=== PATIENT | female | born 1985 | race Caucasian/White ===

== ENCOUNTER 2016-08-06 11:17 | Emergency (ER) | payer OTHER ==
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
[2016-08-06] MEDS ORDERED: metroNIDAZOLE 500 MG TAB PO STA (12:55)
[2016-08-06] MEDS ORDERED: AZITHROMYCIN 500 MG TAB PO STA (12:55)
[2016-08-06] MEDS ORDERED: cefTRIAXone 250 MG VIAL IM STA (12:55)
[2016-08-06 13:00] LABS: Appearance,Urine Cloudy (Clear); Bacteria,Urine Rare /hpf; Bilirubin,Urine Negative (Negative); Glucose,Urine (UA) Negative (Negative); Ketones,Urine Negative (Negative); Leukocyte Esterase,Urine Negative (Negative); Mucus,Urine Rare /hpf; Nitrite,Urine Positive (Negative); PH, Urine 5.5 (5.0-8.0); Particle Count 35225; Protein,Urine Negative (Negative); Squamous Epithelial Cell,Urine 3 /hpf (0-4); UA Billing (MACRO vs. MICRO) MICRO; Urobilinogen,Urine <2.0 mg/dL (<2.0); WBC,Urine 4 /hpf (0-5)
--- NOTE | 2016-08-06 13:18 | US ---
EXAMINATION TYPE: US transvaginal DATE OF EXAM: 08/06/2016 12:50 PM COMPARISON: NONE CLINICAL HISTORY: Pain. x 3, tubal ligation TECHNIQUE: Transvaginal (TV) Date of LMP: 08/01/2016, EXAM MEASUREMENTS: Uterus: 8.4 x 5.8 x 4.5 cm Endometrial Stripe: 0.6 cm Right Ovary: 2.4 x 1.5 x 1.5 cm Left Ovary: 2.8 x 1.8 x 1.9 cm TECHNOLOGIST IMPRESSION: 1. Uterus: wnl, anteverted 2. Endometrium: wnl 3. Right Ovary: follicles 4. Left Ovary: follicles Spectral, color and waveform doppler imaging shows good arterial and venous flow within the ovaries ; there is no evidence for ovarian torsion. 5. Bilateral Adnexa: wnl 6. Posterior cul-de-sac: free fluid IMPRESSION: Ovarian torsion is not evident. Small amount of free fluid.
--- NOTE | 2016-08-06 13:21 | ED ---
Medical Decision Making - Medical Decision Making We did discuss the patient APPEARS to have a tinea pedis. We did discuss will give her cream she is up with her doctor for any additional cramping we discussed possible side effects. Patient states that she understood. - Lab Data Lab Results 08/06/16 08/06/16 08/06/16 Range/Units 12:15 12:15 12:15 Urine Color Yellow Urine Appearance Cloudy H (Clear) Urine pH 5.5 (5.0-8.0) Ur Specific [place] 1.020 (1.001-1.035) Urine Protein Negative (Negative) Urine Glucose (UA) Negative (Negative) Urine Ketones Negative (Negative) Urine Blood Negative (Negative) Urine Nitrate Positive H (Negative) Urine Bilirubin Negative (Negative) Urine Urobilinogen <2.0 (<2.0) mg/dL Ur Leukocyte Esterase Negative (Negative) Urine WBC 4 (0-5) /hpf Ur Squamous Epith Cells 3 (0-4) /hpf Urine Bacteria Rare H (None) /hpf Urine Mucus Rare H (None) /hpf Urine HCG, Qual Not Detected (Not Detectd) Trichomonas Ag (Rapid) Negative (Negative) Disposition Clinical Impression: Pelvic inflammatory disease (PID), Tinea pedis Disposition: HOME SELF-CARE Condition: Stable Instructions: Pelvic Inflammatory Disease (ED) Additional Instructions: Please use medication as discussed. Please follow up with family doctor if symptoms have not improved over the next two days. Please return to the emergency room if your symptoms increase or worsen or for any other concerns. Prescriptions: Doxycycline [Vibramycin] 100 mg PO Q12HR #56 capsule Ketoconazole 2% Cream [Nizoral 2%] 1 applic TOPICAL BID #1 tube Referrals: Kevin Keita MD [Primary Care Provider] - 1-2 days Time of Disposition: 13:21
[2016-08-06 13:34] VITALS: BP 146/88; PULSE 58; RESP 16; TEMP 97.8
[2016-08-08 09:27] LABS: Chlamydia/GC Source Vaginal
== END 2016-08-06 13:37 | disposition home or self-care (01) ==
LOC: EC 11:17
DX: N73.9 Female pelvic inflammatory disease, unspecified (principal); B35.3 Tinea pedis; G40.909 Epilepsy, unspecified, not intractable, without status epilepticus; F41.9 Anxiety disorder, unspecified; F31.9 Bipolar disorder, unspecified; Z79.899 Other long term (current) drug therapy; Z88.0 Allergy status to penicillin; Z88.8 Allergy status to other drugs, medicaments and biological substances; Z88.5 Allergy status to narcotic agent; A63.0 Anogenital (venereal) warts; Z22.4 Carrier of infections with a predominantly sexual mode of transmission; F17.200 Nicotine dependence, unspecified, uncomplicated
CPT/HCPCS: 87591; 87491; 81001; 81025; 87808; 87070; 87086; 93975; 76830; 96372; 99284; J0696; 87077; 87186; 87205

== ENCOUNTER 2016-12-28 16:23 | Emergency (ER) | payer OTHER ==
[2016-12-28] MEDS ORDERED: ORPHENADRINE 30 MG/ML 2 ML VIAL IM STA (17:44)
[2016-12-28] MEDS ORDERED: KETOROLAC 60 MG/2 ML VIAL IM STA (17:44)
[2016-12-28 18:22] LABS: Appearance,Urine Cloudy (Clear); Bacteria,Urine Occasional /hpf; Bilirubin,Urine Negative (Negative); Glucose,Urine (UA) Negative (Negative); Ketones,Urine 1+ (Negative); Leukocyte Esterase,Urine Small (Negative); Mucus,Urine Occasional /hpf; Nitrite,Urine Positive (Negative); PH, Urine 6.5 (5.0-8.0); Particle Count 185863; Protein,Urine Trace (Negative); RBC,Urine 1 /hpf (0-5); Specific Gravity,Urine 1.018 (1.001-1.035); Squamous Epithelial Cell,Urine 5 /hpf (0-4); UA Billing (MACRO vs. MICRO) MICRO; Urobilinogen,Urine <2.0 mg/dL (<2.0); WBC,Urine 18 /hpf (0-5)
--- NOTE | 2016-12-28 18:32 | ED ---
Back Pain HPI - General Chief Complaint: Back Pain/Injury Stated Complaint: Back Pain & STD testing Time Seen by Provider: 12/28/16 17:31 Source: patient, RN notes reviewed, old records reviewed Limitations: no limitations - History of Present Illness Initial Comments: Physical 31-year-old female presenting to the [facility] complaint of chronic back pain. Patient reports she takes tramadol from her primary care provider. Patient reports that she does not like taking the tramadol as she feels it makes her have minor seizures. Patient states that she was told by an emergency room physician to stop taking Ultram. Patient states that despite this her primary care provider continues to prescribe this for her and she has to take it for her pain. Patient states that her pain has been for the past 7 years after an epidural problem. Patient denies any difficulty urinating or changes in her bowel movements. She reports that she's noticed some foul odor to her urine. She denies any significant vaginal discharge. Patient denies any recent fever, chills, shortness of breath, chest pain, abdominal pain, nausea vomiting, numbness or tingling, dysuria or hematuria, constipation or diarrhea, headaches or visual changes, or any other current symptoms - Related Data Home Medications Medication Instructions Recorded Confirmed clonazePAM [KlonoPIN] 0.5 mg PO BID 05/07/16 12/28/16 Citalopram Hydrobromide [CeleXA] 40 mg PO DAILY 08/06/16 12/28/16 Ibuprofen [Motrin] 800 mg PO Q6HR PRN 08/06/16 12/28/16 lamoTRIgine [LaMICtal] 150 mg PO BID 08/06/16 12/28/16 Cholecalciferol [Vitamin D3] 1,000 unit PO DAILY 12/28/16 12/28/16 Methylphenidate HCl 20 mg PO BID 12/28/16 12/28/16 Previous Rx's Medication Instructions Recorded Acetaminophen-Codeine 300-30mg 1 tab PO Q4H PRN #12 tablet 12/28/16 [Tylenol #3] Ibuprofen [Motrin] 600 mg PO Q8HR PRN #20 tab 12/28/16 Nitrofurantoin Monohyd/M-Cryst 100 mg PO Q12HR #14 cap 12/28/16 [Macrobid] Allergies Allergy/AdvReac Type Severity Reaction Status Date / Time Penicillins Allergy Rash/Hives Verified 12/28/16 19:12 cyclobenzaprine HCl AdvReac Severe Unknown Verified 12/28/16 19:12 [From Flexeril] tramadol HCl [From Ultram] AdvReac Severe Unknown Verified 12/28/16 19:12 Review of Systems ROS Statement: Those systems with pertinent positive or pertinent negative responses have been documented in the HPI. ROS Other: All systems not noted in ROS Statement are negative. Past Medical History Past Medical History: Seizure Disorder Additional Past Medical History / Comment(s): back pain, HPV History of Any Multi-Drug Resistant Organisms: None Reported Past Surgical History: Section, Tonsillectomy, Tubal Ligation Past Psychological History: ADD/ADHD, Anxiety, Bipolar, Depression Smoking Status: Current every day smoker Past Alcohol Use History: None Reported Past Drug Use History: Marijuana General Exam - General Exam Comments Initial Comments: Well-appearing 31-year-old female. No acute distress. Limitations: no limitations General appearance: alert, in no apparent distress Head exam: Present: atraumatic, normocephalic, normal inspection Eye exam: Present: normal appearance, PERRL, EOMI. Absent: scleral icterus, conjunctival injection, periorbital swelling ENT exam: Present: normal exam, mucous membranes moist Neck exam: Present: normal inspection. Absent: tenderness, meningismus, lymphadenopathy Respiratory exam: Present: normal lung sounds bilaterally. Absent: respiratory distress, wheezes, rales, rhonchi, stridor Cardiovascular Exam: Present: regular rate, normal rhythm, normal heart sounds. Absent: systolic murmur, diastolic murmur, rubs, gallop, clicks GI/Abdominal exam: Present: soft, normal bowel sounds. Absent: distended, tenderness, guarding, rebound, rigid Extremities exam: Present: normal inspection, full ROM, normal capillary refill. Absent: tenderness, pedal edema, joint swelling, calf tenderness Back exam: Present: normal inspection, full ROM, vertebral tenderness Neurological exam: Present: alert, oriented X3, CN II-XII intact Psychiatric exam: Present: normal affect, normal mood Skin exam: Present: warm, dry, intact, normal color. Absent: rash Course Vital Signs 12/28/16 12/28/16 17:03 19:24 Temperature 98.3 F 98.6 F Pulse Rate 101 H 66 Respiratory 20 18 Rate Blood Pressure 135/88 120/83 O2 Sat by Pulse 99 99 Oximetry Medical Decision Making - Medical Decision Making Physical 31-year-old female presenting to the [facility] complaint of chronic back pain. Patient reports she takes tramadol from her primary care provider. Patient reports that she does not like taking the tramadol as she feels it makes her have minor seizures. Patient states that she was told by an emergency room physician to stop taking Ultram. Patient states that despite this her primary care provider continues to prescribe this for her and she has to take it for her pain. Patient states that her pain has been for the past 7 years after an epidural problem. Patient's parents report was ran. She's only been receiving tramadol. Patient urinalysis completed gestures times for urinary tract infection. Patient denies wanting a pelvic exam to test for sensitivity infection. Patient will be treated with Macrobid for a UTI. Specific for a few Tylenol codeine and she is follow-up with her care provider for further pain management. Patient will be given a referral for pain management. Patient received treatment plan will comply. Return parameters were discussed. - Lab Data Lab Results 12/28/16 12/28/16 Range/Units 18:13 18:17 Urine Color Yellow Urine Appearance Cloudy H (Clear) Urine pH 6.5 (5.0-8.0) Ur Specific [place] 1.018 (1.001-1.035) Urine Protein Trace H (Negative) Urine Glucose (UA) Negative (Negative) Urine Ketones 1+ H (Negative) Urine Blood Negative (Negative) Urine Nitrite Positive H (Negative) Urine Bilirubin Negative (Negative) Urine Urobilinogen <2.0 (<2.0) mg/dL Ur Leukocyte Esterase Small H (Negative) Urine RBC 1 (0-5) /hpf Urine WBC 18 H (0-5) /hpf Ur Squamous Epith Cells 5 H (0-4) /hpf Urine Bacteria Occasional H (None) /hpf Urine Mucus Occasional H (None) /hpf Urine HCG, Qual Not Detected (Not Detectd) Urine Opiates Screen Detected H (NotDetected) Ur Oxycodone Screen Not Detected (NotDetected) Urine Methadone Screen Not Detected (NotDetected) Ur Propoxyphene Screen Not Detected (NotDetected) Ur Barbiturates Screen Detected H (NotDetected) U Tricyclic Antidepress Not Detected (NotDetected) Ur Phencyclidine Scrn Not Detected (NotDetected) Ur Amphetamines Screen Detected H (NotDetected) U Methamphetamines Scrn Not Detected (NotDetected) U Benzodiazepines Scrn Detected H (NotDetected) Urine Cocaine Screen Not Detected (NotDetected) U Marijuana (THC) Screen Detected H (NotDetected) Disposition Clinical Impression: Chronic back pain, UTI (urinary tract infection) Disposition: HOME SELF-CARE Condition: Good Instructions: Acute Low Back Pain (ED) Additional Instructions: Patient is follow-up with her primary care provider or neurologist. Patient advised to take antibiotic prescription. Return to emergency department if any alarming signs or symptoms occur. Prescriptions: Acetaminophen-Codeine 300-30mg [Tylenol #3] 1 tab PO Q4H PRN #12 tablet PRN Reason: Pain Ibuprofen [Motrin] 600 mg PO Q8HR PRN #20 tab PRN Reason: Pain Nitrofurantoin Monohyd/M-Cryst [Macrobid] 100 mg PO Q12HR #14 cap Referrals: Kevin Keita MD [Primary Care Provider] - 1-2 days Victoria Novoa MD [STAFF PHYSICIAN] - 1-2 days Time of Disposition: 18:32
[2016-12-28 19:26] VITALS: BP 120/83; PULSE 66; RESP 18; TEMP 98.6
== END 2016-12-28 19:26 | disposition home or self-care (01) ==
LOC: EC 16:23
DX: N39.0 Urinary tract infection, site not specified (principal); G89.29 Other chronic pain; M54.9 Dorsalgia, unspecified; G40.909 Epilepsy, unspecified, not intractable, without status epilepticus; F90.9 Attention-deficit hyperactivity disorder, unspecified type; F41.9 Anxiety disorder, unspecified; F31.9 Bipolar disorder, unspecified; F17.200 Nicotine dependence, unspecified, uncomplicated; Z79.899 Other long term (current) drug therapy; Z88.0 Allergy status to penicillin; Z88.6 Allergy status to analgesic agent; Z88.8 Allergy status to other drugs, medicaments and biological substances
CPT/HCPCS: 81001; 81025; 80306; 99284; 96372 ×2; J2360; J1885

== ENCOUNTER 2016-12-29 04:57 | Emergency (ER) | payer OTHER ==
[2016-12-29 05:05] VITALS: RESP 18
[2016-12-29] MEDS ORDERED: HYDROcodone/APAP 5-325MG 1 EACH TAB PO STA (05:11)
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
--- NOTE | 2016-12-29 05:49 | CT ---
EXAM: CT Head Without Intravenous Contrast CLINICAL HISTORY: Reason: head trauma TECHNIQUE: Axial computed tomography images of the head/brain without intravenous contrast. CTDI is 120 mGy and DLP is 2238 mGy-cm. This CT exam was performed using one or more of the following dose reduction techniques: automated exposure control, adjustment of the mA and/or kV according to patient size, and/or use of iterative reconstruction technique. COMPARISON: No relevant prior studies available. FINDINGS: Artifacts: Motion artifact degrade image quality. Brain: No gross acute hemorrhage or mass effect. No significant white matter disease. No edema. Ventricles: Unremarkable. No ventriculomegaly. Bones/joints: Unremarkable. No acute fracture. Soft tissues: Left-sided scalp hematoma Sinuses: Unremarkable as visualized. No acute sinusitis. Mastoid air cells: Unremarkable as visualized. No mastoid effusion. IMPRESSION: 1. No acute hemorrhage or mass effect. 2. Left-sided scalp hematoma
[2016-12-29] MEDS ORDERED: MORPHINE SULFATE 10 MG/ML SYRINGE IM STA (06:02)
--- NOTE | 2016-12-29 06:09 | XR ---
EXAM: XR Right Wrist Complete, 3 or More Views CLINICAL HISTORY: Reason: Pain TECHNIQUE: Frontal, lateral and oblique views of the right wrist. COMPARISON: No relevant prior studies available. FINDINGS: Bones/joints: Unremarkable. No acute fracture. No dislocation. Soft tissues: Unremarkable. No radiopaque foreign body. IMPRESSION: No acute bony abnormality in the right wrist
[2016-12-29 06:11] VITALS: BP 117/75; PULSE 91
--- NOTE | 2016-12-29 06:14 | XR ---
EXAM: XR Left Ribs and AP Chest, 3 or More Views CLINICAL HISTORY: Reason: Pain TECHNIQUE: Frontal and oblique views of the left ribs and frontal view of the chest. COMPARISON: No relevant prior studies available. FINDINGS: Lungs: Faint nodular density projecting over the right lower lung, probable nipple shadow. Symmetric faint increased density over the lower lung zones likely overlying breast tissue. Follow-up as indicated to exclude developing early infiltrate in the lower lobes. Pleural space: Unremarkable. No pneumothorax. Heart: Unremarkable. No cardiomegaly. Mediastinum: Unremarkable. Bones/joints: No left rib fracture IMPRESSION: 1. Finding over the lower lung zones which may reflect overlying breast tissue versus early infiltrate. Follow-up PA and lateral chest x-ray as clinically indicated. 2. Probable right nipple shadow. 3. No left rib fracture
[2016-12-29 06:51] VITALS: TEMP 98.9
== END 2016-12-29 06:50 | disposition home or self-care (01) ==
LOC: EC 04:57
DX: S00.03XA Contusion of scalp, initial encounter (principal); S00.83XA Contusion of other part of head, initial encounter; S40.022A Contusion of left upper arm, initial encounter; S80.811A Abrasion, right lower leg, initial encounter; S80.812A Abrasion, left lower leg, initial encounter; G40.909 Epilepsy, unspecified, not intractable, without status epilepticus; F31.9 Bipolar disorder, unspecified; F90.9 Attention-deficit hyperactivity disorder, unspecified type; F17.200 Nicotine dependence, unspecified, uncomplicated; Z79.899 Other long term (current) drug therapy; Z88.0 Allergy status to penicillin; Z88.6 Allergy status to analgesic agent; Z88.8 Allergy status to other drugs, medicaments and biological substances; Y04.0XXA Assault by unarmed brawl or fight, initial encounter
CPT/HCPCS: 71101; 73110; 70450; 99284; 96372; J2270

== ENCOUNTER 2017-12-17 19:06 | Emergency (ER) | payer OTHER ==
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
[2017-12-17 21:08] VITALS: RESP 18
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
[2017-12-17 22:21] LABS: Appearance,Urine Clear (Clear); Bilirubin,Urine Negative (Negative); Blood,Urine Negative (Negative); Color,Urine Light Yellow; Glucose,Urine (UA) Negative (Negative); Ketones,Urine Negative (Negative); Leukocyte Esterase,Urine Negative (Negative); Nitrite,Urine Negative (Negative); Protein,Urine Trace (Negative); Specific Gravity,Urine 1.005 (1.001-1.035); Urobilinogen,Urine <2.0 mg/dL (<2.0)
[2017-12-17 22:42] LABS: Amphetamine Screen,Urine Detected (NotDetected); Barbiturate Screen,Urine Not Detected (NotDetected); Benzodiazepines Screen,Urine Detected (NotDetected); Cocaine Screen,Urine Not Detected (NotDetected); Methadone Screen, Urine Not Detected (NotDetected); Opiate Screen,Urine Not Detected (NotDetected); Oxycodone Screen, Urine Not Detected (NotDetected); Phencyclidine Screen,Urine Not Detected (NotDetected); Tricyclic Antidepressant,Urine Not Detected (NotDetected); Urn Cannabinoid Scrn Detected (NotDetected)
[2017-12-17] MEDS ORDERED: traMADol 50 MG TAB PO STA (23:36)
[2017-12-17 23:51] VITALS: BP 118/62; PULSE 89; TEMP 97.5
== END 2017-12-17 23:45 | disposition home or self-care (01) ==
LOC: EC 19:06
DX: S16.1XXA Strain of muscle, fascia and tendon at neck level, initial encounter (principal); S91.312A Laceration without foreign body, left foot, initial encounter; S80.01XA Contusion of right knee, initial encounter; S00.83XA Contusion of other part of head, initial encounter; F10.129 Alcohol abuse with intoxication, unspecified; G89.29 Other chronic pain; M54.5 Low back pain; F12.90 Cannabis use, unspecified, uncomplicated; R45.1 Restlessness and agitation; G40.909 Epilepsy, unspecified, not intractable, without status epilepticus; F31.9 Bipolar disorder, unspecified; F41.9 Anxiety disorder, unspecified; F90.9 Attention-deficit hyperactivity disorder, unspecified type; F17.200 Nicotine dependence, unspecified, uncomplicated; Z79.899 Other long term (current) drug therapy; Z88.0 Allergy status to penicillin; Z88.5 Allergy status to narcotic agent; Z88.8 Allergy status to other drugs, medicaments and biological substances; Z91.040 Latex allergy status; Y04.0XXA Assault by unarmed brawl or fight, initial encounter
CPT/HCPCS: 36415; 70450; 72070; 72100; 72125; 80306; 80320; 81003; 99285

== ENCOUNTER 2018-07-17 14:58 | Emergency (ER) | payer OTHER ==
[2018-07-17 18:49] LABS: Amorphous Sediment,Urine Rare /hpf; Appearance,Urine Cloudy (Clear); Bacteria,Urine Many /hpf; Bilirubin,Urine Negative (Negative); Blood,Urine Large (Negative); Calcium Oxalate Crystals,Urine Occasional /hpf; Color,Urine Yellow; Glucose,Urine (UA) Negative (Negative); Ketones,Urine Negative (Negative); Leukocyte Esterase,Urine Small (Negative); Mucus,Urine Few /hpf; Nitrite,Urine Positive (Negative); Protein,Urine 1+ (Negative); RBC,Urine >182 /hpf (0-5); Specific Gravity,Urine 1.018 (1.001-1.035); Squamous Epithelial Cell,Urine 4 /hpf (0-4); Urobilinogen,Urine <2.0 mg/dL (<2.0)
[2018-07-17 19:00] LABS: Amphetamine Screen,Urine Not Detected (NotDetected); Benzodiazepines Screen,Urine Detected (NotDetected); Cocaine Screen,Urine Not Detected (NotDetected); Methadone Screen, Urine Not Detected (NotDetected); Opiate Screen,Urine Not Detected (NotDetected); Oxycodone Screen, Urine Not Detected (NotDetected); Phencyclidine Screen,Urine Not Detected (NotDetected); Tricyclic Antidepressant,Urine Not Detected (NotDetected); Urn Cannabinoid Scrn Detected (NotDetected)
[2018-07-17 19:01] LABS: Barbiturate Screen,Urine Detected (NotDetected)
[2018-07-17 19:13] LABS: Basophils % (A) 0 %; Eosinophils # (A) 0.1 k/uL (0-0.7); Eosinophils % (A) 1 %; HCT 41.7 % (34.0-46.0); HGB 14.2 gm/dL (11.4-16.0); Lymphocytes # (A) 2.8 k/uL (1.0-4.8); Lymphocytes % (A) 31 %; MCH 30.8 pg (25.0-35.0); MCHC 34.1 g/dL (31.0-37.0); MCV 90.5 fL (80.0-100.0); Mean Platelet Volume 7.2; Monocytes # (A) 0.6 k/uL (0-1.0); Monocytes % (A) 7 %; Neutrophils # (A) 5.3 k/uL (1.3-7.7); Neutrophils % (A) 58 %; Platelet Count 297 k/uL (150-450); RBC 4.61 m/uL (3.80-5.40); RDW 13.4 % (11.5-15.5); WBC 9.1 k/uL (3.8-10.6)
[2018-07-17 19:17] LABS: ALT 18 U/L (9-52); AST 21 U/L (14-36); Albumin 4.3 g/dL (3.5-5.0); Alkaline Phosphatase 65 U/L (38-126); Anion Gap 11 mmol/L; Blood Urea Nitrogen 8 mg/dL (7-17); Calcium 9.5 mg/dL (8.4-10.2); Carbon Dioxide 20 mmol/L (22-30); Chloride 113 mmol/L (98-107); Glucose 93 mg/dL (74-99); Potassium 3.4 mmol/L (3.5-5.1); Sodium 144 mmol/L (137-145); Total Bilirubin 0.3 mg/dL (0.2-1.3)
[2018-07-17] MEDS ORDERED: SODIUM CHLORIDE 0.9% 1,000 ML IV ONE (19:44)
[2018-07-17] MEDS ORDERED: cefTRIAXone 1,000 MG VIAL (IM USE) IM STA (19:59)
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
[2018-07-17] MEDS ORDERED: ACETAMINOPHEN TAB 325 MG TAB PO STA (21:01)
[2018-07-18] MEDS: clonazePAM 0.5 MG TAB PO SCH ×2 (01:10→11:27)
[2018-07-18 08:36] VITALS: BP 118/68; PULSE 59; RESP 16; TEMP 98
[2018-07-18] MEDS ORDERED: ACETAMINOPHEN TAB 325 MG TAB PO STA (08:41)
[2018-07-18] MEDS ORDERED: CITALOPRAM HYDROBROMIDE 20 MG TAB PO SCH (09:00)
[2018-07-18] MEDS ORDERED: LAMOTRIGINE 150 MG PO SCH (09:00)
[2018-07-18] MEDS ORDERED: lamoTRIgine 100 MG TAB PO STA (09:23)
== END 2018-07-18 11:31 ==
LOC: EC 14:58
DX: F29 Unspecified psychosis not due to a substance or known physiological condition (principal); N39.0 Urinary tract infection, site not specified; F22 Delusional disorders; G40.909 Epilepsy, unspecified, not intractable, without status epilepticus; F90.9 Attention-deficit hyperactivity disorder, unspecified type; F31.9 Bipolar disorder, unspecified; F41.9 Anxiety disorder, unspecified; F17.200 Nicotine dependence, unspecified, uncomplicated; Z79.899 Other long term (current) drug therapy; Z88.0 Allergy status to penicillin; Z88.8 Allergy status to other drugs, medicaments and biological substances; Z91.040 Latex allergy status; Z88.5 Allergy status to narcotic agent; Z53.8 Procedure and treatment not carried out for other reasons
CPT/HCPCS: 82075; 36415; 80053; 85025; 81001; 81025; 80306; 87086; 99285; 96372; J0696; 87077; 87186

== ENCOUNTER 2018-10-02 18:10 | Emergency (ER) | payer OTHER ==
[2018-10-02] MEDS ORDERED: SODIUM CHLORIDE 0.9% 1,000 ML IV ONE (18:30)
[2018-10-02] MEDS ORDERED: ONDANSETRON 4 MG/2 ML VIAL IVP STA (18:30)
[2018-10-02 19:11] LABS: Basophils % (A) 0 %; Eosinophils # (A) 0.3 k/uL (0-0.7); Eosinophils % (A) 3 %; HCT 41.8 % (34.0-46.0); HGB 13.4 gm/dL (11.4-16.0); Lymphocytes # (A) 1.9 k/uL (1.0-4.8); Lymphocytes % (A) 23 %; MCH 29.9 pg (25.0-35.0); MCV 93.6 fL (80.0-100.0); Mean Platelet Volume 7.2; Monocytes # (A) 0.6 k/uL (0-1.0); Monocytes % (A) 7 %; Neutrophils # (A) 5.5 k/uL (1.3-7.7); Neutrophils % (A) 65 %; Platelet Count 225 k/uL (150-450); RBC 4.47 m/uL (3.80-5.40); WBC 8.5 k/uL (3.8-10.6)
[2018-10-02 19:21] LABS: ALT 21 U/L (9-52); AST 19 U/L (14-36); Albumin 3.9 g/dL (3.5-5.0); Alkaline Phosphatase 57 U/L (38-126); Anion Gap 4 mmol/L; Blood Urea Nitrogen 10 mg/dL (7-17); Calcium 9.1 mg/dL (8.4-10.2); Carbon Dioxide 31 mmol/L (22-30); Chloride 107 mmol/L (98-107); Glucose 84 mg/dL (74-99); Potassium 4.4 mmol/L (3.5-5.1); Sodium 142 mmol/L (137-145); Total Bilirubin 0.3 mg/dL (0.2-1.3); Total Protein 6.3 g/dL (6.3-8.2)
[2018-10-02 19:53] LABS: Appearance,Urine Turbid (Clear); Bilirubin,Urine Negative (Negative); Blood,Urine Negative (Negative); Color,Urine Yellow; Glucose,Urine (UA) Negative (Negative); Ketones,Urine Negative (Negative); Leukocyte Esterase,Urine Trace (Negative); Mucus,Urine Occasional /hpf; Nitrite,Urine Positive (Negative); PH, Urine 7.5 (5.0-8.0); Protein,Urine Trace (Negative); Squamous Epithelial Cell,Urine 1 /hpf (0-4); WBC,Urine 106 /hpf (0-5)
[2018-10-02] MEDS ORDERED: KETOROLAC 30 MG/ML 1 ML VIAL IVP STA (19:59)
[2018-10-02] MEDS ORDERED: cefTRIAXone IN SWFI 1,000 MG/10 ML SYRINGE IVP STA (19:59)
--- NOTE | 2018-10-02 20:04 | ED ---
Back Pain HPI - General Chief Complaint: Back Pain/Injury Stated Complaint: Lower back/Leg pain Time Seen by Provider: 10/02/18 18:22 Source: patient Limitations: no limitations - History of Present Illness Initial Comments: 32-year-old female with past medical history of chronic low back pain with sciatica presenting today for chief complaint of low back pain and dysuria. Patient states she has had bilateral low back pain, she states it feels similar when she had a kidney infection the past. Patient states she does have chronic back pain that radiates down her legs bilaterally. Patient denies differences today. She denies a fever, chills, night sweats. Patient denies IV drug use, history of cancer, history of tuberculosis, inability to ambulate, loss of sensation or muscle weakness of the lower extremities. She denies any urinary retention or loss of bowel bladder control. Patient had one episode of emesis while in the emergency department, she states she took her tramadol which she takes for chronic low back pain on an empty stomach. Patient had additional episode immediately following initial. Since patient was administered Zofran patient has not had additional episode. Remaining review of systems negative, patient denies any recent trauma or injury to the back, recent falls, shortness of breath, chest pain, abdominal pain, numbness or tingling, LE swelling, hematuria, constipation or diarrhea, headaches or visual changes, or any other complaints. - Related Data Home Medications Medication Instructions Recorded Confirmed clonazePAM [KlonoPIN] 0.5 mg PO BID 05/07/16 10/02/18 traMADol HCl [Ultram] 50 mg PO Q6H PRN 12/17/17 10/02/18 Methylphenidate HCl [Ritalin] 20 mg PO BID 10/02/18 10/02/18 lamoTRIgine [LaMICtal] 150 mg PO BID 10/02/18 10/02/18 Previous Rx's Medication Instructions Recorded Sulfamethox-Tmp 800-160Mg [Bactrim 1 tab PO Q12HR 14 Days #28 tab 10/02/18 DS 800-160 mg] Allergies Allergy/AdvReac Type Severity Reaction Status Date / Time cyclobenzaprine Allergy SEIZURES Verified 10/02/18 18:41 [From Flexeril] latex Allergy Rash/Hives Verified 10/02/18 18:41 Penicillins Allergy Rash/Hives Verified 10/02/18 18:41 Review of Systems ROS Statement: Those systems with pertinent positive or pertinent negative responses have been documented in the HPI. ROS Other: All systems not noted in ROS Statement are negative. Past Medical History Past Medical History: Seizure Disorder Additional Past Medical History / Comment(s): back pain, HPV History of Any Multi-Drug Resistant Organisms: None Reported Past Surgical History: Section, Tonsillectomy, Tubal Ligation Additional Past Surgical History / Comment(s): c section x 3 Past Psychological History: ADD/ADHD, Anxiety, Bipolar, Depression Smoking Status: Current every day smoker Past Alcohol Use History: None Reported, Occasional Past Drug Use History: Marijuana General Exam - General Exam Comments Initial Comments: General: The patient is awake and alert, in no distress, and does not appear acutely ill. Eye: Pupils are equal, round and reactive to light, extra-ocular movements are intact. No nystagmus. There is normal conjunctiva bilaterally. No signs of icterus. Ears, nose, mouth and throat: There are moist mucous membranes and no oral lesions. Neck: The neck is supple, there is no tenderness or JVD. Cardiovascular: There is a regular rate and rhythm. No murmur, rub or gallop is appreciated. Respiratory: Lungs are clear to auscultation, respirations are non-labored, breath sounds are equal. No wheezes, stridor, rales, or rhonchi. Gastrointestinal: Soft, non-distended, non-tender abdomen without masses or organomegaly noted. There is no rebound or guarding present. CVA b/l. Bowel sounds are unremarkable. Musculoskeletal: Normal inspection of the cervical thoracic and lumbar spine. Paravertebral tenderness of the lumbar, significant midline tenderness. Patient admits to mild of the lower aspect of lumbar spine. Normal ROM, no tenderness of the lower extremities. Strength 5/5 of the lower extremities equal comparison bilaterally. Sensation intact of the lower extremity is equal comparison bilaterally including the saddle region. DP pulses equal bilaterally 2+. Neurological: A&O x 3. CN II-XII intact, There are no obvious motor or sensory deficits. Coordination appears grossly intact. Speech is normal. Skin: Skin is warm and dry and no rashes or lesions are noted. Psychiatric: Cooperative, appropriate mood & affect, normal judgment. Limitations: no limitations Course Vital Signs 10/02/18 10/02/18 18:14 19:40 Temperature 98.1 F Pulse Rate 77 77 Respiratory 18 20 Rate Blood Pressure 113/70 110/56 O2 Sat by Pulse 98 99 Oximetry Medical Decision Making - Medical Decision Making 32-year-old female presenting today for chief complaint of dysuria and bilateral low back pain. Patient states she is chronic low back pain with radiation down the legs. Patient had paravertebral and some mild midline tenderness of the lumbar spine. Patient had no break legs upon history taking. Patient denies any significant changes in the low back pain however the new characteristic which she states is similar to when she had a kidney infection in the past. Patient has no specific leukocytosis. Urinalysis revealed nitrates as well as white blood cells concerning for beginning of pyelonephritis. Evidence for u rinary tract infection. Patient given IV fluids as well as 1 g ceftriaxone IV push. Patient be discharged with antibiotic treatment as well as close follow- up with primary care provider. Patient is agreeable plan as well as discharge, denies questions at this time. Patient states upon reevaluation that she was feeling better than initial presentation. I discussed the case attending provider Dr. Seth who is agreeable with plan of care and discharge. Patient is aware of return parameters, I discussed these at length including immediate return for development of fever. - Lab Data Result diagrams: 10/02/18 18:58 10/02/18 18:58 Lab Results 10/02/18 10/02/18 10/02/18 Range/Units 18:58 18:58 19:30 WBC 8.5 (3.8-10.6) k/uL RBC 4.47 (3.80-5.40) m/uL Hgb 13.4 (11.4-16.0) gm/dL Hct 41.8 (34.0-46.0) % MCV 93.6 (80.0-100.0) fL MCH 29.9 (25.0-35.0) pg MCHC 32.0 (31.0-37.0) g/dL RDW 13.0 (11.5-15.5) % Plt Count 225 (150-450) k/uL Neutrophils % 65 % Lymphocytes % 23 % Monocytes % 7 % Eosinophils % 3 % Basophils % 0 % Neutrophils # 5.5 (1.3-7.7) k/uL Lymphocytes # 1.9 (1.0-4.8) k/uL Monocytes # 0.6 (0-1.0) k/uL Eosinophils # 0.3 (0-0.7) k/uL Basophils # 0.0 (0-0.2) k/uL Sodium 142 (137-145) mmol/L Potassium 4.4 (3.5-5.1) mmol/L Chloride 107 (98-107) mmol/L Carbon Dioxide 31 H (22-30) mmol/L Anion Gap 4 mmol/L BUN 10 (7-17) mg/dL Creatinine 0.77 (0.52-1.04) mg/dL Est GFR (CKD-EPI)AfAm >90 (>60 ml/min/1.73 sqM) Est GFR (CKD-EPI)NonAf >90 (>60 ml/min/1.73 sqM) Glucose 84 (74-99) mg/dL Calcium 9.1 (8.4-10.2) mg/dL Total Bilirubin 0.3 (0.2-1.3) mg/dL AST 19 (14-36) U/L ALT 21 (9-52) U/L Alkaline Phosphatase 57 (38-126) U/L Total Protein 6.3 (6.3-8.2) g/dL Albumin 3.9 (3.5-5.0) g/dL Urine Color Yellow Urine Appearance Turbid H (Clear) Urine pH 7.5 (5.0-8.0) Ur Specific Vanderbilt 1.020 (1.001-1.035) Urine Protein Trace H (Negative) Urine Glucose (UA) Negative (Negative) Urine Ketones Negative (Negative) Urine Blood Negative (Negative) Urine Nitrite Positive H (Negative) Urine Bilirubin Negative (Negative) Urine Urobilinogen 2.0 (<2.0) mg/dL Ur Leukocyte Esterase Trace H (Negative) Urine WBC 106 H (0-5) /hpf Ur Squamous Epith Cells 1 (0-4) /hpf Urine Mucus Occasional H (None) /hpf Urine HCG, Qual (Not Detectd) 10/02/18 Range/Units 19:30 WBC (3.8-10.6) k/uL RBC (3.80-5.40) m/uL Hgb (11.4-16.0) gm/dL Hct (34.0-46.0) % MCV (80.0-100.0) fL MCH (25.0-35.0) pg MCHC (31.0-37.0) g/dL RDW (11.5-15.5) % Plt Count (150-450) k/uL Neutrophils % % Lymphocytes % % Monocytes % % Eosinophils % % Basophils % % Neutrophils # (1.3-7.7) k/uL Lymphocytes # (1.0-4.8) k/uL Monocytes # (0-1.0) k/uL Eosinophils # (0-0.7) k/uL Basophils # (0-0.2) k/uL Sodium (137-145) mmol/L Potassium (3.5-5.1) mmol/L Chloride (98-107) mmol/L Carbon Dioxide (22-30) mmol/L Anion Gap mmol/L BUN (7-17) mg/dL Creatinine (0.52-1.04) mg/dL Est GFR (CKD-EPI)AfAm (>60 ml/min/1.73 sqM) Est GFR (CKD-EPI)NonAf (>60 ml/min/1.73 sqM) Glucose (74-99) mg/dL Calcium (8.4-10.2) mg/dL Total Bilirubin (0.2-1.3) mg/dL AST (14-36) U/L ALT (9-52) U/L Alkaline Phosphatase (38-126) U/L Total Protein (6.3-8.2) g/dL Albumin (3.5-5.0) g/dL Urine Color Urine Appearance (Clear) Urine pH (5.0-8.0) Ur Specific Vanderbilt (1.001-1.035) Urine Protein (Negative) Urine Glucose (UA) (Negative) Urine Ketones (Negative) Urine Blood (Negative) Urine Nitrite (Negative) Urine Bilirubin (Negative) Urine Urobilinogen (<2.0) mg/dL Ur Leukocyte Esterase (Negative) Urine WBC (0-5) /hpf Ur Squamous Epith Cells (0-4) /hpf Urine Mucus (None) /hpf Urine HCG, Qual Not Detected (Not Detectd) Disposition Clinical Impression: UTI (urinary tract infection) Disposition: HOME SELF-CARE Condition: Good Instructions (If sedation given, give patient instructions): Urinary Tract Infection in Women (DC), Kidney Infection (ED) Additional Instructions: Please use medication as discussed. Please follow-up with family doctor in the next 2 days. Please return to emergency room if the symptoms increase or worsen or for any other concerns. Prescriptions: Sulfamethox-Tmp 800-160Mg [Bactrim DS 800-160 mg] 1 tab PO Q12HR 14 Days #28 tab Is patient prescribed a controlled substance at d/c from ED?: No Referrals: None,Stated [Primary Care Provider] - 1-2 days [facility] [NON-STAFF] - 1-2 days Time of Disposition: 20:03
[2018-10-02 20:34] VITALS: BP 98/67; PULSE 58; RESP 18; TEMP 98
== END 2018-10-02 20:31 | disposition home or self-care (01) ==
LOC: EC 18:10
DX: N39.0 Urinary tract infection, site not specified (principal); G40.909 Epilepsy, unspecified, not intractable, without status epilepticus; F31.9 Bipolar disorder, unspecified; F90.9 Attention-deficit hyperactivity disorder, unspecified type; F17.200 Nicotine dependence, unspecified, uncomplicated; Z79.899 Other long term (current) drug therapy; Z88.0 Allergy status to penicillin; Z91.040 Latex allergy status; Z88.8 Allergy status to other drugs, medicaments and biological substances
CPT/HCPCS: 36415; 80053; 81001; 81025; 85025; 96361; 96374; 96375; 99283

== ENCOUNTER 2019-01-14 21:17 | Emergency (ER) | payer OTHER ==
[2019-01-14 21:27] VITALS: RESP 18
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
--- NOTE | 2019-01-14 22:17 | CT ---
EXAM: CT Head Without Intravenous Contrast CLINICAL HISTORY: ITS.REASON CT Reason: Pain TECHNIQUE: Axial computed tomography images of the head/brain without intravenous contrast. CTDI is 49.1 mGy and DLP is 1062 mGy-cm. This CT exam was performed using one or more of the following dose reduction techniques: automated exposure control, adjustment of the mA and/or kV according to patient size, and/or use of iterative reconstruction technique. COMPARISON: CT head 12/17/2017. FINDINGS: Brain: Unremarkable. No hemorrhage. No significant white matter disease. No edema. Ventricles: Unremarkable. No ventriculomegaly. Bones/joints: Unremarkable. No acute fracture. Soft tissues: Unremarkable. Sinuses: Unremarkable as visualized. No acute sinusitis. Mastoid air cells: Trace left mastoid tip effusion. IMPRESSION: No intracranial hemorrhage or other acute intracranial abnormality.
[2019-01-14 22:40] VITALS: BP 105/56; PULSE 64; TEMP 98.4
== END 2019-01-14 22:47 | disposition home or self-care (01) ==
LOC: EC 21:17
DX: S09.90XA Unspecified injury of head, initial encounter (principal); S40.021A Contusion of right upper arm, initial encounter; R11.2 Nausea with vomiting, unspecified; R51 Headache; R42 Dizziness and giddiness; G40.909 Epilepsy, unspecified, not intractable, without status epilepticus; F90.9 Attention-deficit hyperactivity disorder, unspecified type; F41.9 Anxiety disorder, unspecified; F31.9 Bipolar disorder, unspecified; F17.200 Nicotine dependence, unspecified, uncomplicated; Z79.899 Other long term (current) drug therapy; Z88.0 Allergy status to penicillin; Z88.8 Allergy status to other drugs, medicaments and biological substances; Z91.040 Latex allergy status; Y04.0XXA Assault by unarmed brawl or fight, initial encounter; Y04.8XXA Assault by other bodily force, initial encounter; Y92.009 Unspecified place in unspecified non-institutional (private) residence as the place of occurrence of the external cause
CPT/HCPCS: 70450; 99284

== ENCOUNTER 2019-02-07 12:39 | Emergency (ER) | payer OTHER ==
[2019-02-07 12:52] VITALS: BP 127/81; PULSE 75; RESP 18; TEMP 98
--- NOTE | 2019-02-07 14:27 | ED ---
Upper Extremity HPI - General Chief Complaint: Extremity Injury, Upper Stated Complaint: Wrist/hand pain Time Seen by Provider: 02/07/19 13:14 Source: patient, RN notes reviewed, old records reviewed Mode of arrival: ambulatory Limitations: no limitations - History of Present Illness Initial Comments: Patient is a 33-year-old female who presents emergency department today for evaluation for bilateral wrist pain. Patient reports that having chronic wrist pain worsening at night after she returns home from work. 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 Patient reports it feels numb and tingling down the lateral third fourth and fifth fingers. Patient states that she's had no significant fall or trauma is onto her wrists or hands. She also complains of some irritation within her right ear canal. She reports that she was cleaning her ear with a Q-tip and caused an abrasion and some bleeding and swelling noted at this time. - Related Data Home Medications Medication Instructions Recorded Confirmed clonazePAM [KlonoPIN] 0.25 mg PO BID 05/07/16 02/07/19 lamoTRIgine [LaMICtal] 150 mg PO BID 10/02/18 02/07/19 Buprenorphine HCl/Naloxone HCl 0.25 film SUBLINGUAL QID 01/14/19 02/07/19 [Suboxone 12 mg-3 mg Sl Film] Methylphenidate HCl [Ritalin] 15 mg PO BID 01/14/19 02/07/19 Previous Rx's Medication Instructions Recorded Ibuprofen 800 mg PO TID #20 tablet 02/07/19 Ofloxacin 0.3% Otic Soln [Floxin 5 drops BOTH EARS BID #1 bottle 02/07/19 0.3% Otic Soln] methylPREDNISolone Dose Pack 4 mg PO DIRECTED #21 package 02/07/19 [Medrol Dose Pack] Allergies Allergy/AdvReac Type Severity Reaction Status Date / Time latex Allergy Rash/Hives Verified 02/07/19 13:11 Penicillins Allergy Rash/Hives Verified 02/07/19 13:11 cyclobenzaprine AdvReac SEIZURES Verified 02/07/19 13:11 [From Flexeril] Review of Systems ROS Statement: Those systems with pertinent positive or pertinent negative responses have been documented in the HPI. ROS Other: All systems not noted in ROS Statement are negative. Past Medical History Past Medical History: Seizure Disorder Additional Past Medical History / Comment(s): back pain, HPV History of Any Multi-Drug Resistant Organisms: None Reported Past Surgical History: Section, Tonsillectomy, Tubal Ligation Additional Past Surgical History / Comment(s): c section x 3 Past Psychological History: ADD/ADHD, Anxiety, Bipolar, Depression, PTSD, Schizophrenia Smoking Status: Current every day smoker Past Alcohol Use History: Occasional Past Drug Use History: Marijuana General Exam - General Exam Comments Initial Comments: Alert and oriented 33-year-old female. No significant distress. General: Well appearing, well nourished, in no distress. Oriented x 3, normal mood and affect . Ambulating without difficulty. Skin: Good turgor, no rash, unusual bruising or prominent lesions Hair: Normal texture and distribution. HEENT: Head: Normocephalic, atraumatic, no visible or palpable masses, depressions, or scaring. Eyes: Visual acuity intact, conjunctiva clear, sclera non-icteric, EOM intact, PERRL. Ears: Right EAC has evidence of an abrasion with surrounding erythema and induration. Evidence of dried blood over the area. Neck: Supple, without lesions, bruits, or adenopathy, thyroid non-enlarged and non-tender Heart: No cardiomegaly or thrills; regular rate and rhythm, no murmur or gallop Extremities: No amputations or deformities, cyanosis, edema or varicosities, peripheral pulses intact Musculoskeletal: Normal gait and station. Positive Tinel's test. She has full range of motion and quarantine inspector strength of all fingers and wrist. Neurologic: CN 2-12 normal. Sensation to pain, touch, and proprioception normal. DTRs normal in upper and lower extremities. No pathologic reflexes. Psychiatric: Oriented X3, intact recent and remote memory, judgment and insight, normal mood and affect. Limitations: no limitations Course Vital Signs 02/07/19 12:49 Temperature 98 F Pulse Rate 75 Respiratory 18 Rate Blood Pressure 127/81 O2 Sat by Pulse 99 Oximetry Medical Decision Making - Medical Decision Making This patient's a 33-year-old female with complaints of bilateral wrist pain after work. Concern for possible carpal tunnel syndrome bilaterally. She states pain is worse at night and effects the third fourth and fifth fingers. She has full range of motion and normal sensation this time. She had positive Tinel's test. Patient was prescribed bilateral wrist splints, advised against inflammatory medicine and steroids. She also complained of some ear abrasion. His evidence of irritation within the right ear canal. We'll put the Patient on ofloxacin drops at this time. Discussed not using Q-tips at this time. All questions were answered return parameters were discussed. Given a referral for orthopedics. Disposition Clinical Impression: Carpal tunnel syndrome, Ear canal abrasion Disposition: HOME SELF-CARE Condition: Good Instructions (If sedation given, give patient instructions): Paresthesia (ED) Additional Instructions: Patient advised to follow-up with PCP. Return to ED if any alarming signs or symptoms occur. Prescriptions: Ofloxacin 0.3% Otic Soln [Floxin 0.3% Otic Soln] 5 drops BOTH EARS BID #1 bottle Ibuprofen 800 mg PO TID #20 tablet methylPREDNISolone Dose Pack [Medrol Dose Pack] 4 mg PO DIRECTED #21 package Is patient prescribed a controlled substance at d/c from ED?: No Referrals: None,Stated [Primary Care Provider] - 1-2 days Cornell Driscoll DO [Doctor of Osteopathic Medicine] - 1-2 days Time of Disposition: 14:24
== END 2019-02-07 14:36 | disposition home or self-care (01) ==
LOC: EC 12:39
DX: S00.411A Abrasion of right ear, initial encounter (principal); G56.03 Carpal tunnel syndrome, bilateral upper limbs; G40.909 Epilepsy, unspecified, not intractable, without status epilepticus; F90.9 Attention-deficit hyperactivity disorder, unspecified type; F31.9 Bipolar disorder, unspecified; F20.9 Schizophrenia, unspecified; F43.10 Post-traumatic stress disorder, unspecified; F41.9 Anxiety disorder, unspecified; F17.200 Nicotine dependence, unspecified, uncomplicated; Z79.899 Other long term (current) drug therapy; Z88.0 Allergy status to penicillin; Z91.040 Latex allergy status; Z88.8 Allergy status to other drugs, medicaments and biological substances; X58.XXXA Exposure to other specified factors, initial encounter
CPT/HCPCS: 99283

== ENCOUNTER 2019-05-21 15:19 | Emergency (ER) | payer OTHER ==
[2019-05-21 15:27] VITALS: BP 126/75; PULSE 77; RESP 18; TEMP 98.7
[2019-05-21] MEDS ORDERED: IBUPROFEN 600 MG TAB PO STA (16:30)
[2019-05-21] MEDS ORDERED: guaiFENesin-DM 600/30MG 1 EACH TAB.ER.12H PO STA (16:30)
[2019-05-21] MEDS ORDERED: ONDANSETRON ODT 4 MG TAB PO STA (16:30)
--- NOTE | 2019-05-21 17:16 | ED ---
URI HPI - General Chief Complaint: Upper Respiratory Infection Stated Complaint: fever, cough Time Seen by Provider: 05/21/19 16:04 Source: patient Mode of arrival: ambulatory Limitations: no limitations - History of Present Illness Initial Comments: 33-year-old female patient presents to the emergency department today for evaluation of cough, nasal congestion, and sore throat. Patient states she's been feeling poorly for the last 2-3 days. States she is having general body aches and chills. Patient also reports 2 episodes of vomiting this morning. She denies any abdominal pain or diarrhea. Denies any hematuria, dysuria, urinary frequency, urinary urgency. States that she has her tubes tied and denies chance of . Patient denies any recent rash, shortness breath, chest pain, constipation, back pain, numbness, tingling, dizziness, weakness, headache, visual changes, or any other complaints. - Related Data Home Medications Medication Instructions Recorded Confirmed clonazePAM [KlonoPIN] 0.25 mg PO BID 05/07/16 02/07/19 lamoTRIgine [LaMICtal] 150 mg PO BID 10/02/18 02/07/19 Buprenorphine HCl/Naloxone HCl 0.25 film SUBLINGUAL QID 01/14/19 02/07/19 [Suboxone 12 mg-3 mg Sl Film] Methylphenidate HCl [Ritalin] 15 mg PO BID 01/14/19 02/07/19 Previous Rx's Medication Instructions Recorded Ibuprofen 800 mg PO TID #20 tablet 02/07/19 Ofloxacin 0.3% Otic Soln [Floxin 5 drops BOTH EARS BID #1 bottle 02/07/19 0.3% Otic Soln] methylPREDNISolone Dose Pack 4 mg PO DIRECTED #21 package 02/07/19 [Medrol Dose Pack] Ibuprofen [Motrin] 600 mg PO Q8HR PRN #30 tab 05/21/19 Ondansetron [Zofran ODT] 4 mg PO Q8HR PRN #10 tab 05/21/19 guaiFENesin-DM 600/30MG [Mucinex 1 each PO Q12HR #10 tab.er.12h 05/21/19 Dm] Allergies Allergy/AdvReac Type Severity Reaction Status Date / Time latex Allergy Rash/Hives Verified 05/21/19 15:26 Penicillins Allergy Rash/Hives Verified 05/21/19 15:26 cyclobenzaprine AdvReac SEIZURES Verified 05/21/19 15:26 [From Flexeril] Review of Systems ROS Statement: Those systems with pertinent positive or pertinent negative responses have been documented in the HPI. ROS Other: All systems not noted in ROS Statement are negative. Past Medical History Past Medical History: Seizure Disorder Additional Past Medical History / Comment(s): back pain, HPV History of Any Multi-Drug Resistant Organisms: None Reported Past Surgical History: Section, Tonsillectomy, Tubal Ligation Additional Past Surgical History / Comment(s): c section x 3 Past Psychological History: ADD/ADHD, Anxiety, Bipolar, Depression, PTSD, Schizophrenia Smoking Status: Current every day smoker Past Alcohol Use History: Occasional Past Drug Use History: Marijuana General Exam Limitations: no limitations General appearance: alert, in no apparent distress, other (This is a well- developed, well-nourished adult female patient in no acute distress. Vital signs upon presentation are temperature 98.7F, pulse 77, respirations 18, blood pressure 126/75, pulse ox 99% on room air.) Eye exam: Present: normal appearance, PERRL, EOMI. Absent: scleral icterus, conjunctival injection, periorbital swelling ENT exam: Present: normal exam, normal oropharynx, mucous membranes moist, TM's normal bilaterally (Pearly with no effusion) Neck exam: Present: normal inspection. Absent: tenderness, meningismus, lymphadenopathy Respiratory exam: Present: normal lung sounds bilaterally. Absent: respiratory distress, wheezes, rales, rhonchi, stridor Cardiovascular Exam: Present: regular rate, normal rhythm, normal heart sounds. Absent: systolic murmur, diastolic murmur, rubs, gallop, clicks GI/Abdominal exam: Present: soft, normal bowel sounds. Absent: distended, t enderness, guarding, rebound, rigid Back exam: Present: normal inspection. Absent: CVA tenderness (R), CVA tenderness (L) Neurological exam: Present: alert, oriented X3, CN II-XII intact Psychiatric exam: Present: normal affect, normal mood Skin exam: Present: warm, dry, intact, normal color. Absent: rash Course Vital Signs 05/21/19 15:24 Temperature 98.7 F Pulse Rate 77 Respiratory 18 Rate Blood Pressure 126/75 O2 Sat by Pulse 99 Oximetry Medical Decision Making - Medical Decision Making 33-year-old female patient presents to the emergency department today for evaluation of cough, congestion, and body aches. Physical examination is unremarkable. Lungs are clear to auscultation with good air movement. Urinalysis negative for any evidence of infection. Patient symptoms are consistent with viral upper respiratory infection. She'll be discharged with this and asked, ibuprofen, and Zofran. She is instructed to follow-up with her primary care physician for recheck in 1-2 days. Return parameters discussed in detail. She verbalizes understanding and agrees with this plan. - Lab Data Lab Results 05/21/19 Range/Units 17:21 Urine Color Yellow Urine Appearance Cloudy H (Clear) Urine pH 7.0 (5.0-8.0) Ur Specific [place] 1.015 (1.001-1.035) Urine Protein Negative (Negative) Urine Glucose (UA) Negative (Negative) Urine Ketones Negative (Negative) Urine Blood Negative (Negative) Urine Nitrite Negative (Negative) Urine Bilirubin Negative (Negative) Urine Urobilinogen <2.0 (<2.0) mg/dL Ur Leukocyte Esterase Trace H (Negative) Urine WBC 4 (0-5) /hpf Ur Squamous Epith Cells 3 (0-4) /hpf Urine Bacteria Few H (None) /hpf Urine Mucus Rare H (None) /hpf - Radiology Data Radiology results: report reviewed, image reviewed Two-view x-ray of the chest is obtained. Report was reviewed in its entirety. Impression by Dr. Ramírez shows no acute pulmonary process. Disposition Clinical Impression: Viral syndrome, Upper respiratory infection Disposition: HOME SELF-CARE Condition: Good Instructions (If sedation given, give patient instructions): Upper Respiratory Infection (ED), Viral Syndrome (ED) Additional Instructions: Increase fluids. Rest. Follow up with your primary care physician for recheck in 1-2 days. Return to the emergency department immediately for any new, worsening, or concerning symptoms. Prescriptions: Ibuprofen [Motrin] 600 mg PO Q8HR PRN #30 tab PRN Reason: Pain guaiFENesin-DM 600/30MG [Mucinex Dm] 1 each PO Q12HR #10 tab.er.12h Ondansetron [Zofran ODT] 4 mg PO Q8HR PRN #10 tab PRN Reason: Nausea Is patient prescribed a controlled substance at d/c from ED?: No Referrals: None,Stated [Primary Care Provider] - 1-2 days Time of Disposition: 18:28
--- NOTE | 2019-05-21 17:33 | XR ---
EXAMINATION TYPE: XR chest 2V DATE OF EXAM: 05/21/2019 COMPARISON: 12/29/2016 INDICATION: Cough, fever TECHNIQUE: Frontal and lateral views of the chest are obtained. FINDINGS: The heart size is normal. The pulmonary vasculature is normal. The lungs are clear. Breast shadow is evident bilaterally with nipple shadows. IMPRESSION: 1. No acute pulmonary process.
[2019-05-21 17:42] LABS: Appearance,Urine Cloudy (Clear); Bilirubin,Urine Negative (Negative); Blood,Urine Negative (Negative); Color,Urine Yellow; Glucose,Urine (UA) Negative (Negative); Ketones,Urine Negative (Negative); Leukocyte Esterase,Urine Trace (Negative); Nitrite,Urine Negative (Negative); Protein,Urine Negative (Negative); Specific Gravity,Urine 1.015 (1.001-1.035); Urobilinogen,Urine <2.0 mg/dL (<2.0)
[2019-05-21 17:43] LABS: Bacteria,Urine Few /hpf; Mucus,Urine Rare /hpf; Squamous Epithelial Cell,Urine 3 /hpf (0-4); WBC,Urine 4 /hpf (0-5)
== END 2019-05-21 18:35 | disposition home or self-care (01) ==
LOC: EC 15:19
DX: B34.9 Viral infection, unspecified (principal); J06.9 Acute upper respiratory infection, unspecified; G40.909 Epilepsy, unspecified, not intractable, without status epilepticus; F90.9 Attention-deficit hyperactivity disorder, unspecified type; F17.200 Nicotine dependence, unspecified, uncomplicated; Z79.891 Long term (current) use of opiate analgesic; Z79.899 Other long term (current) drug therapy; Z91.040 Latex allergy status; Z88.0 Allergy status to penicillin; Z88.8 Allergy status to other drugs, medicaments and biological substances
CPT/HCPCS: 71046; 81001; 99283

== ENCOUNTER 2020-02-04 00:30 | Emergency (ER) | payer OTHER ==
[2020-02-04 00:50] VITALS: BP 141/85; PULSE 60; RESP 18; TEMP 99.3
--- NOTE | 2020-02-04 01:00 | ED ---
Recheck HPI - General Chief Complaint: Recheck/Abnormal Lab/Rx Stated Complaint: Possible Covid Exposure Time Seen by Provider: 02/04/20 00:59 Source: patient, RN notes reviewed, old records reviewed Mode of arrival: ambulatory Limitations: no limitations - History of Present Illness Initial Comments: This is a 34-year-old female possible covert exposure at work. Everything from work work is sent to be tested. Patient has no other symptoms denies any complaints. Patient is no medical history takes no medications denies fever cough or congestion. No nausea vomiting or diarrhea MD Complaint: abnormal lab -: unknown Returns Today for: Called Because of Abnormal Lab/Test, needs work/school note Symptoms Since Prior Visit: no new symptoms Context: planned re-check Associated Symptoms: none - Related Data Home Medications Medication Instructions Recorded Confirmed clonazePAM [KlonoPIN] 0.25 mg PO BID 05/07/16 02/07/19 lamoTRIgine [LaMICtal] 150 mg PO BID 10/02/18 02/07/19 Buprenorphine HCl/Naloxone HCl 0.25 film SUBLINGUAL QID 01/14/19 02/07/19 [Suboxone 12 mg-3 mg Sl Film] Methylphenidate HCl [Ritalin] 15 mg PO BID 01/14/19 02/07/19 Previous Rx's Medication Instructions Recorded Ibuprofen 800 mg PO TID #20 tablet 02/07/19 Ofloxacin 0.3% Otic Soln [Floxin 5 drops BOTH EARS BID #1 bottle 02/07/19 0.3% Otic Soln] methylPREDNISolone Dose Pack 4 mg PO DIRECTED #21 package 02/07/19 [Medrol Dose Pack] Ibuprofen [Motrin] 600 mg PO Q8HR PRN #30 tab 05/21/19 Ondansetron [Zofran ODT] 4 mg PO Q8HR PRN #10 tab 05/21/19 guaiFENesin-DM 600/30MG [Mucinex 1 each PO Q12HR #10 tab.er.12h 05/21/19 Dm] Allergies Allergy/AdvReac Type Severity Reaction Status Date / Time latex Allergy Rash/Hives Verified 02/04/20 00:50 Penicillins Allergy Rash/Hives Verified 02/04/20 00:50 cyclobenzaprine AdvReac SEIZURES Verified 02/04/20 00:50 [From Flexeril] Review of Systems ROS Statement: Those systems with pertinent positive or pertinent negative responses have been documented in the HPI. ROS Other: All systems not noted in ROS Statement are negative. Past Medical History Past Medical History: Seizure Disorder Additional Past Medical History / Comment(s): back pain, HPV History of Any Multi-Drug Resistant Organisms: None Reported Past Surgical History: Section, Tonsillectomy, Tubal Ligation Additional Past Surgical History / Comment(s): c section x 3 Past Psychological History: ADD/ADHD, Anxiety, Bipolar, Depression, PTSD, Schizophrenia Smoking Status: Current every day smoker Past Alcohol Use History: Occasional Past Drug Use History: Marijuana General Exam Limitations: no limitations General appearance: alert, in no apparent distress Head exam: Present: atraumatic, normocephalic, normal inspection Eye exam: Present: normal appearance, PERRL, EOMI. Absent: scleral icterus, conjunctival injection, periorbital swelling ENT exam: Present: normal exam, mucous membranes moist Neck exam: Present: normal inspection. Absent: tenderness, meningismus, lympha denopathy Respiratory exam: Present: normal lung sounds bilaterally. Absent: respiratory distress, wheezes, rales, rhonchi, stridor Cardiovascular Exam: Present: regular rate, normal rhythm, normal heart sounds. Absent: systolic murmur, diastolic murmur, rubs, gallop, clicks GI/Abdominal exam: Present: soft, normal bowel sounds. Absent: distended, tenderness, guarding, rebound, rigid Extremities exam: Present: normal inspection, full ROM, normal capillary refill. Absent: tenderness, pedal edema, joint swelling, calf tenderness Back exam: Present: normal inspection Neurological exam: Present: alert, oriented X3, CN II-XII intact Psychiatric exam: Present: normal affect, normal mood Skin exam: Present: warm, dry, intact, normal color. Absent: rash Course Vital Signs 02/04/20 02/04/20 00:47 01:35 Temperature 99.3 F 99.3 F Pulse Rate 60 60 Respiratory 18 18 Rate Blood Pressure 141/85 141/85 O2 Sat by Pulse 98 98 Oximetry - Reevaluation(s) Reevaluation #1: Medical record is reviewed Patient remains asymptomatic Medical Decision Making - Medical Decision Making 34 female for possible coronavirus exposure, given coronavirus testing and can be discharged home - Lab Data Lab Results 02/04/20 Range/Units 01:08 Coronavirus (PCR) Not Detected (Not Detected) Disposition Clinical Impression: Exposure to 2019 novel coronavirus Disposition: HOME SELF-CARE Condition: Good Instructions (If sedation given, give patient instructions): Normal Exam (ED) Is patient prescribed a controlled substance at d/c from ED?: No Referrals: August Bain MD [Primary Care Provider] - 1-2 days
== END 2020-02-04 01:38 | disposition home or self-care (01) ==
LOC: EC 00:30
DX: Z03.818 Encounter for observation for suspected exposure to other biological agents ruled out (principal); G40.909 Epilepsy, unspecified, not intractable, without status epilepticus; M54.9 Dorsalgia, unspecified; F90.9 Attention-deficit hyperactivity disorder, unspecified type; F17.200 Nicotine dependence, unspecified, uncomplicated; Z79.891 Long term (current) use of opiate analgesic; Z79.899 Other long term (current) drug therapy; Z91.040 Latex allergy status; Z88.0 Allergy status to penicillin; Z88.8 Allergy status to other drugs, medicaments and biological substances
CPT/HCPCS: 99284; U0003

== ENCOUNTER 2021-08-11 21:20 | Emergency (ER) | payer OTHER ==
--- NOTE | 2021-08-11 21:55 | ED ---
Overdose HPI - General Chief Complaint: Overdose Stated Complaint: Overdose Time Seen by Provider: 08/11/21 21:35 Source: patient, EMS Mode of arrival: EMS Limitations: no limitations - History of Present Illness Initial Comments: This patient is a 35-year-old woman brought by EMS a suspected overdose. The patient when questioned does not know why she is here or how she came to be here. She states that the last and she remembers is sitting on her bed. She then remembers waking up here. Complaint: accidental overdose -: minutes(s) - Related Data Home Medications Medication Instructions Recorded Confirmed No Known Home Medications 08/11/21 08/11/21 Allergies Allergy/AdvReac Type Severity Reaction Status Date / Time latex Allergy Rash/Hives Verified 08/11/21 22:51 Penicillins Allergy Rash/Hives Verified 08/11/21 22:51 tramadol Allergy Unknown Verified 08/11/21 22:51 cyclobenzaprine AdvReac SEIZURES Verified 08/11/21 22:51 [From Flexeril] Review of Systems ROS Statement: Those systems with pertinent positive or pertinent negative responses have been documented in the HPI. ROS Other: All systems not noted in ROS Statement are negative. Constitutional: Denies: fever Respiratory: Denies: cough, dyspnea Cardiovascular: Denies: chest pain Gastrointestinal: Denies: abdominal pain, vomiting, diarrhea Genitourinary: Denies: dysuria Musculoskeletal: Denies: back pain Neurological: Denies: headache Past Medical History Past Medical History: Seizure Disorder Additional Past Medical History / Comment(s): back pain, HPV History of Any Multi-Drug Resistant Organisms: None Reported Past Surgical History: Section, Tonsillectomy, Tubal Ligation Additional Past Surgical History / Comment(s): c section x 3 Past Psychological History: ADD/ADHD, Anxiety, Bipolar, Depression, PTSD, Schizo phrenia Smoking Status: Current every day smoker Past Alcohol Use History: Occasional Past Drug Use History: Heroin, Marijuana General Exam Limitations: no limitations General appearance: alert, in no apparent distress Head exam: Present: atraumatic, normocephalic Eye exam: Present: normal appearance. Absent: scleral icterus, conjunctival injection Neck exam: Present: normal inspection Respiratory exam: Present: normal lung sounds bilaterally. Absent: respiratory distress, wheezes, rales, rhonchi, stridor Cardiovascular Exam: Present: regular rate, normal rhythm, normal heart sounds. Absent: systolic murmur, diastolic murmur, rubs, gallop GI/Abdominal exam: Present: soft. Absent: distended, tenderness, guarding, rebound, rigid, mass Extremities exam: Present: normal inspection, normal capillary refill. Absent: pedal edema, calf tenderness Back exam: Present: normal inspection. Absent: CVA tenderness (R), CVA tenderness (L) Neurological exam: Present: alert Skin exam: Present: warm, dry, intact, normal color. Absent: rash Course Vital Signs 08/11/21 08/11/21 08/11/21 21:27 22:19 23:24 Temperature 97.6 F 98.0 F Pulse Rate 106 H 85 98 Respiratory 20 18 20 Rate Blood Pressure 142/63 113/77 112/78 O2 Sat by Pulse 98 98 97 Oximetry Medical Decision Making - Medical Decision Making Subsequent history reveals patient had snorted heroin. She was found unresponsive and EMS was called. Patient did receive a dose of Narcan. Patient is watched here number of hours and remains awake and alert. She did request to be discharged and I discussed risk of losing consciousness again but patient states he has family member who will be with her for the next 3-4 hours. They will return if there is any change in condition or any new symptoms. - EKG Data -: EKG Interpreted by Me EKG shows normal: sinus rhythm (Rate 96 bpm), axis (Normal), intervals (Normal), QRS complexes (Normal), ST-T waves (Normal) Rate: normal Disposition Clinical Impression: Accidental drug overdose Disposition: HOME SELF-CARE Condition: Good Instructions (If sedation given, give patient instructions): Adult Overdose (ED) Is patient prescribed a controlled substance at d/c from ED?: No Referrals: August Bain MD [REFERRING] - 1-2 days
[2021-08-11 23:25] VITALS: RESP 20; TEMP 98
[2021-08-12 00:54] VITALS: BP 106/68; PULSE 82
== END 2021-08-12 00:54 | disposition home or self-care (01) ==
LOC: EC 21:20
DX: T50.901A Poisoning by unspecified drugs, medicaments and biological substances, accidental (unintentional), initial encounter (principal); F17.210 Nicotine dependence, cigarettes, uncomplicated; Z91.040 Latex allergy status; Z88.0 Allergy status to penicillin; Z88.6 Allergy status to analgesic agent; Z88.8 Allergy status to other drugs, medicaments and biological substances
CPT/HCPCS: 93005; 99284

== ENCOUNTER 2022-04-03 15:43 | Emergency (ER) | payer OTHER ==
[2022-04-03 15:59] VITALS: RESP 20; TEMP 98.1
--- NOTE | 2022-04-03 18:50 | ED ---
General Adult HPI - General Chief complaint: Recheck/Abnormal Lab/Rx Stated complaint: Med Refill, Suboxone Time Seen by Provider: 04/03/22 18:34 Source: patient Mode of arrival: ambulatory Limitations: no limitations - History of Present Illness Initial comments: This 36-year-old female presents requesting a refill of her Suboxone. She also states that she would like her Klonopin refilled. She relates that she's been out of her Suboxone for the last 5 days. She has been on this intermittently for the last several years. She was told by her doctor that she needed to follow-up with orthopedics for evaluation of her carpal tunnel syndrome bilaterally. She never followed up with the orthopedic physician so her doctor stopped prescribing her the control medications. She denies any new injuries. No other complaints or modifying factors. She states that she does not currently have a primary care physician. She does relate having issues with chronic pain to her bilateral wrists as well as chronic low back pain. - Related Data Home Medications Medication Instructions Recorded Confirmed No Known Home Medications 08/11/21 08/11/21 Allergies Allergy/AdvReac Type Severity Reaction Status Date / Time latex Allergy Rash/Hives Verified 04/03/22 15:59 Penicillins Allergy Rash/Hives Verified 04/03/22 15:59 tramadol Allergy Unknown Verified 04/03/22 15:59 cyclobenzaprine AdvReac SEIZURES Verified 04/03/22 15:59 [From Flexeril] Review of Systems ROS Statement: Those systems with pertinent positive or pertinent negative responses have been documented in the HPI. ROS Other: All systems not noted in ROS Statement are negative. Past Medical History Past Medical History: Seizure Disorder Additional Past Medical History / Comment(s): back pain, HPV History of Any Multi-Drug Resistant Organisms: None Reported Past Surgical History: Section, Tonsillectomy, Tubal Ligation Additional Past Surgical History / Comment(s): c section x 3 Past Psychological History: ADD/ADHD, Anxiety, Bipolar, Depression, PTSD, Oriana izophrenia Smoking Status: Current every day smoker Past Alcohol Use History: Occasional Past Drug Use History: Heroin, Marijuana General Exam - General Exam Comments Initial Comments: GENERAL: The patient is well nourished and well hydrated. VITAL SIGNS: Heart rate, blood pressure, respiratory rate reviewed as recorded in nurse's notes. EYES: Pupils are round and reactive. Extraocular movements are intact. No conjunctival / lid redness or swelling. ENT: No external evidence of injury, swelling, or ecchymosis. Airway is patent. Throat is clear. NECK: Nontender. No swelling or evidence of injury. No subcutaneous emphysema. Trachea is midline. No thyroid mass. HEART: Regular rate and rhythm. Good peripheral pulses. LUNGS/CHEST: Breath sounds clear and equal bilaterally. No rales, rhonchi, or wheezes. No ecchymosis, subcutaneous emphysema, or tenderness. ABDOMEN: Abdomen soft without tenderness. No palpable masses or organomegaly. No peritoneal signs. No abdominal wall swelling or ecchymosis. EXTREMITIES: No extremity tenderness. Normal muscle tone and function. No thoracolumbar tenderness. NEUROLOGIC: Sensation is grossly intact. Cranial nerve exam reveals face is symmetrical, tongue is midline, speech is clear. SKIN: No abrasions or ecchymosis is noted. No induration or masses noted. PSYCHIATRIC: Alert and oriented. Appropriate behavior and judgment. Limitations: no limitations Course Vital Signs 04/03/22 04/03/22 15:56 18:56 Temperature 98.1 F Pulse Rate 108 H 98 Respiratory 20 20 Rate Blood Pressure 136/80 132/79 O2 Sat by Pulse 98 98 Oximetry Medical Decision Making - Medical Decision Making The patient was seen and examined. She is informed that we do not prescribe Suboxone through the emergency department. I did not feel comfortable refilling her Klonopin or other controlled substances. She is to follow-up with a primary care physician for Klonopin. She also may follow-up with pain management for further Suboxone prescription. Primary care referrals given. Return parameters are discussed. Disposition Clinical Impression: Narcotic addiction Disposition: HOME SELF-CARE Condition: Fair Instructions (If sedation given, give patient instructions): Narcotic Withdrawal (ED) Is patient prescribed a controlled substance at d/c from ED?: No Referrals: Gilberto Harry MD [Medical Doctor] - 1-2 days Time of Disposition: 18:49
[2022-04-03 18:59] VITALS: BP 132/79; PULSE 98
== END 2022-04-03 19:04 | disposition home or self-care (01) ==
LOC: EC 15:43
DX: F11.20 Opioid dependence, uncomplicated (principal); F17.200 Nicotine dependence, unspecified, uncomplicated; Z76.0 Encounter for issue of repeat prescription; Z91.040 Latex allergy status; Z88.0 Allergy status to penicillin; Z88.5 Allergy status to narcotic agent
CPT/HCPCS: 99281

== ENCOUNTER 2023-11-13 17:20 | Inpatient (IN) | payer MEDICAID, OTHER ==
--- NOTE | 2023-11-13 18:38 | ED ---
General Adult HPI - General Source: patient, police, RN notes reviewed Mode of arrival: ambulatory Limitations: no limitations <Eleazar Vuong - Last Filed: 11/13/23 18:37> <Jesus Gillespie - Last Filed: 11/14/23 04:14> - General Chief complaint: Psychiatric Symptoms Stated complaint: Mental health eval Time Seen by Provider: 11/13/23 18:12 - History of Present Illness Initial comments: Patient is a 38-year-old female presenting to the emergency department for mental health evaluation. Patient admits to feeling frustrated. Patient admits to threatening to burn the house down if she was not left alone. Patient does admit to weaning herself off her medications over the past few months. Patient states she has not completely stopped them yet. Patient denies suicidal thoughts. Patient denies any new physical complaints. Patient denies alcohol or street drug use. (Eleazar Vuong) - Related Data Home Medications Medication Instructions Recorded Confirmed No Known Home Medications 08/11/21 08/11/21 Allergies Allergy/AdvReac Type Severity Reaction Status Date / Time latex Allergy Rash/Hives Verified 11/13/23 18:10 Penicillins Allergy Rash/Hives Verified 11/13/23 18:10 tramadol Allergy Unknown Verified 11/13/23 18:10 cyclobenzaprine AdvReac SEIZURES Verified 11/13/23 18:10 [From Flexeril] Review of Systems ROS Other: All systems not noted in ROS Statement are negative. Constitutional: Denies: fever Eyes: Denies: eye pain ENT: Denies: ear pain Respiratory: Denies: cough Cardiovascular: Denies: chest pain Endocrine: Denies: fatigue Gastrointestinal: Denies: abdominal pain Psychiatric: Reports: as per HPI <Eleazar Vuong - Last Filed: 11/13/23 18:37> ROS Other: All systems not noted in ROS Statement are negative. <Jesus Gillespie - Last Filed: 11/14/23 04:14> ROS Statement: Those systems with pertinent positive or pertinent negative responses have been documented in the HPI. Past Medical History Past Medical History: Seizure Disorder Additional Past Medical History / Comment(s): back pain, HPV History of Any Multi-Drug Resistant Organisms: None Reported Past Surgical History: Section, Tonsillectomy, Tubal Ligation Additional Past Surgical History / Comment(s): c section x 3 Past Psychological History: ADD/ADHD, Anxiety, Bipolar, Depression, PTSD, Schizophrenia Smoking Status: Current every day smoker Past Alcohol Use History: Occasional Past Drug Use History: Heroin, Marijuana <Eleazar Vuong - Last Filed: 11/13/23 18:37> General Exam Limitations: no limitations General appearance: alert, in no apparent distress Head exam: Present: normocephalic Eye exam: Present: normal appearance Neck exam: Present: normal inspection Respiratory exam: Present: normal lung sounds bilaterally Cardiovascular Exam: Present: regular rate, normal rhythm GI/Abdominal exam: Present: soft. Absent: tenderness Extremities exam: Present: normal inspection Neurological exam: Present: alert Psychiatric exam: Present: normal affect, normal mood Skin exam: Present: normal color <Eleazar Vuong - Last Filed: 11/13/23 18:37> Course Vital Signs 11/13/23 18:02 Temperature 97.8 F Pulse Rate 70 Respiratory 16 Rate Blood Pressure 137/85 O2 Sat by Pulse 99 Oximetry Medical Decision Making <Jesus Gillespie - Last Filed: 11/14/23 04:14> - Medical Decision Making Patient was pending EPS evaluation. Medically cleared by prior physician. Briefly, patient presents with homicidal ideations with wanting to harm her parents with delusional thoughts. EPS Evaluated patient and determined that she does meet inpatient criteria. Patient will be admitted to inpatient psychiatry. Clinical certificate completed by myself. Diagnosis/symptom? @ -Encounter for psychiatric evaluation, homicidal ideations, delusional Acute, or Chronic, or Acute on Chronic? @ -Acute Uncomplicated (without systemic symptoms) or Complicated (systemic symptoms)? @ -Complicated Side effects of treatment? @ -None Exacerbation, Progression, or Severe Exacerbation] @ -No Poses a threat to life or bodily function? @ -Yes (Jesus Gillespie) Disposition <Eleazar Vuong - Last Filed: 11/13/23 18:37> <Jesus Gillespie - Last Filed: 11/14/23 04:14> Clinical Impression: Encounter for psychiatric assessment, Delusional disorder, Homicidal ideations Disposition: TRANSFER TO PSYCH HOSP/UNIT Condition: Stable Referrals: Douglas Amador MD [Primary Care Provider] - 1-2 days
[2023-11-14 04:30] LABS: Amphetamine Screen,Urine Detected (NotDetected); Barbiturate Screen,Urine Not Detected (NotDetected); Benzodiazepines Screen,Urine Not Detected (NotDetected); Cocaine Screen,Urine Not Detected (NotDetected); Methadone Screen, Urine Not Detected (NotDetected); Opiate Screen,Urine Not Detected (NotDetected); Oxycodone Screen, Urine Not Detected (NotDetected); Phencyclidine Screen,Urine Not Detected (NotDetected); Tricyclic Antidepressant,Urine Not Detected (NotDetected); Urn Cannabinoid Scrn Detected (NotDetected)
[2023-11-14] MEDS ORDERED: HALOPERIDOL LACTATE 5 MG/ML 1 ML VIAL IM PRN (05:30)
[2023-11-14] MEDS ORDERED: ACETAMINOPHEN TAB 325 MG TAB PO PRN (05:30)
[2023-11-14] MEDS ORDERED: MAGNESIUM HYDROXIDE 2,400 MG/30 ML CUP PO PRN (05:30)
[2023-11-14] MEDS ORDERED: MAG HYDROX/AL HYDROX/SIMETH 355 ML BOTTLE PO PRN (05:30)
[2023-11-14] MEDS ORDERED: traZODone HCL 50 MG TAB PO PRN (05:30)
[2023-11-14] MEDS ORDERED: LORazepam 2 MG/ML INJ IM PRN (05:30)
[2023-11-14 05:56] LABS: Amorphous Sediment,Urine Occasional /hpf; Appearance,Urine Turbid (Clear); Bacteria,Urine Many /hpf; Bilirubin,Urine Negative (Negative); Blood,Urine Negative (Negative); Color,Urine Yellow; Glucose,Urine (UA) Negative (Negative); Ketones,Urine Negative (Negative); Leukocyte Esterase,Urine Large (Negative); Mucus,Urine Many /hpf; Nitrite,Urine Negative (Negative); Protein,Urine Trace (Negative); RBC,Urine 4 /hpf (0-5); Specific Gravity,Urine 1.013 (1.001-1.035); Squamous Epithelial Cell,Urine 28 /hpf (0-4); WBC,Urine 92 /hpf (0-5)
[2023-11-14] MEDS: LORazepam 1 MG TAB PO PRN (06:17)
[2023-11-14] MEDS: NICOTINE 14MG/24HR PATCH TRANSDERM SCH (09:56)
--- NOTE | 2023-11-14 13:02 | P.HP ---
Psychiatric H&P - . H&P Date: 11/14/23 History & Physical: Allergies Allergy/AdvReac Type Severity Reaction Status Date / Time latex Allergy Rash/Hives Verified 11/13/23 18:10 Penicillins Allergy Rash/Hives Verified 11/13/23 18:10 tramadol Allergy Unknown Verified 11/13/23 18:10 cyclobenzaprine AdvReac SEIZURES Verified 11/13/23 18:10 From Flexeril Vital Signs Temp 97.7 F 11/14/23 05:53 Pulse 56 L 11/14/23 05:53 Resp 18 11/14/23 05:53 BP 139/61 11/14/23 05:53 Pulse Ox 97 11/14/23 05:53 FiO2 Intake & Output 11/13/23 11/14/23 11/14/23 18:59 06:59 18:59 Weight 58.967 kg Laboratory Last Values Urine Color Yellow 11/14/23 04:04 Urine Appearance Turbid (Clear) H 11/14/23 04:04 Urine pH 6.0 (5.0-8.0) 11/14/23 04:04 Ur Specific [place] 1.013 (1.001-1.035) 11/14/23 04:04 Urine Protein Trace (Negative) H 11/14/23 04:04 Urine Glucose (UA) Negative (Negative) 11/14/23 04:04 Urine Ketones Negative (Negative) 11/14/23 04:04 Urine Blood Negative (Negative) 11/14/23 04:04 Urine Nitrite Negative (Negative) 11/14/23 04:04 Urine Bilirubin Negative (Negative) 11/14/23 04:04 Urine Urobilinogen 2.0 mg/dL (<2.0) 11/14/23 04:04 Ur Leukocyte Esterase Large (Negative) H 11/14/23 04:04 Urine RBC 4 /hpf (0-5) 11/14/23 04:04 Urine WBC 92 /hpf (0-5) H 11/14/23 04:04 Urine WBC Clumps Many /hpf (None) H 11/14/23 04:04 Ur Squamous Epith Cells 28 /hpf (0-4) H 11/14/23 04:04 Amorphous Sediment Occasional /hpf (None) H 11/14/23 04:04 Urine Bacteria Many /hpf (None) H 11/14/23 04:04 Urine Mucus Many /hpf (None) H 11/14/23 04:04 Urine HCG, Qual Not Detected (Not Detectd) 11/14/23 04:04 Urine Opiates Screen Not Detected (NotDetected) 11/14/23 04:04 Ur Oxycodone Screen Not Detected (NotDetected) 11/14/23 04:04 Urine Methadone Screen Not Detected (NotDetected) 11/14/23 04:04 Ur Barbiturates Screen Not Detected (NotDetected) 11/14/23 04:04 U Tricyclic Antidepress Not Detected (NotDetected) 11/14/23 04:04 Ur Phencyclidine Scrn Not Detected (NotDetected) 11/14/23 04:04 Ur Amphetamines Screen Detected (NotDetected) H 11/14/23 04:04 U Methamphetamines Scrn Not Detected (NotDetected) 11/14/23 04:04 U Benzodiazepines Scrn Not Detected (NotDetected) 11/14/23 04:04 Urine Cocaine Screen Not Detected (NotDetected) 11/14/23 04:04 U Marijuana (THC) Screen Detected (NotDetected) H 11/14/23 04:04 Influenza Type A (PCR) Not Detected (Not Detectd) 11/14/23 04:00 Influenza Type B (PCR) Not Detected (Not Detectd) 11/14/23 04:00 RSV (PCR) Not Detected (Not Detectd) 11/14/23 04:00 SARS-CoV-2 (PCR) Not Detected (Not Detectd) 11/14/23 04:00 11/14/23 09:02 IDENTIFYING DATA: Patient is a 38-year-old female. Lives in a house with her m other and sister. Has 2 children, works at a gas station. HPI: Patient presented to the hospital on 11/12. As per EPS note, "Pt presents to involuntary, petitioned by her mother; "Talking to people saying there alive, banging torch on table saying she going to burn the place up. Saying she going to shoot me , grabbed my phone physically from me and threw it. Says she going to kill her dad for yelling at her, going to chop us up, someone taking her kids, and killing them, yelling at people that aren't there, someone molesting her kids again." Pt appears distracted and changes her version of events. Pt states "She's pickig on me; her and Puja (pt's adult sister). They keep taking all my money, my stuff, my job, everything." When asked to elaborate, pt just stares off. Pt then states "I haven't worked or had a job in a while." When asked about her children, ages 2 and 3, pt initially states they are /c her mother. Then changes her story later and states they're /c their bi ological father, then again later states they are in foster care. Pt initially states she is not homocidal, then when asked specifically if she wants to kill her parents, pt states "yes because they're messing /c me. I don't know why I'm here." Pt appears distracted. During Assessment pt points out towards EC desk and whispers "they're crazy out there. They're trying to get me." This repairer typewriter called pt's mother/petitioner who states pt "has been acting like this for 3 days and I'm afraid of her; she can't come home wanting to kill us." Patient was seen at her bedside today, and was agreeable to speak with the repairer typewriter. She states she "just yelled a little bit, and her mom petitioned her. She states she was angry because her mom and sister are taking things out of her room. She claims to have no depression, and bad anxiety. She states that she hasn't eaten since yesterday, but she needs to eat. Patient has not been out of her room since admission. She states she is prescribed Suboxone, but she has not had it in two days. Packaging Technician told patient if it is in her property, we can send it to pharmacy to get verified, and she can begin taking it again. she adamantly denied and rationelized everything on the petition. Patient denies any suicidal or homicidal ideations intent or plan. At this time patient denies any auditory or visual hallucinations. Patient denies any flight of ideas racing thoughts and increased in goal directed behavior. Patient admits to using marijuana and cigarettes. PAST PSYCHIATRIC HISTORY: Patient states that she was admitted psychiatrically a couple x 8 years ago, she follows with Don[facility] at [facility]. She was on Lamictal, but she stopped taking it because she does not like the drug. She reports no prior suicide attempts. PMH:As per ER note ALLERGIES: as per EMR CHEMICAL DEPENDENCY HISTORY: as per HPI FAMILY PSYCHIATRIC/SUBSTANCE USE HISTORY: Denies SOCIAL HISTORY: Patient was born and raised in [place]. She lives in a house with her mother and sister. 9th grade education. She has 2 children, she works at a gas station. She admits to being in prison a few times for charges of not returning her rental property on time and disturbing the peace MENTAL STATUS EXAM: General Appearance: Patient appears to be stated age is alert, directable, and attempts to cooperate. Patient appears to have fair hygiene and grooming. Behavior: Patient is laying in bed without any agitated behavior. Covered up, cooperative. Speech: Patient's speech is fluent and nonpressured. Mood/Affect: Patient reports their mood is anxious, affect is congruent and constricted. Suicidality/Homicidality: Patient denies having any homicidal ideation intent or plan. Denies any suicidal ideations intent or plan Perceptions: Patient denies any visual hallucinations and denies any auditory hallucinations Though content/process: There is no evidence of any delusional thought content and thought process is linear and goal-directed. [place]. rationalizing and minimizing need for treatment and hospitalization. Memory and concentration: AOX3, grossly intact for the purposes of this session. Judgment and insight: Poor STRENGTHS/WEAKNESSES: strength is that patient is resilient. Weakness is that patient has poor judgment and is impulsive INTELLECT: Average IMPRESSIONS: psychosis, unspecified likely stimulant abuse opioid use disorder, currently on agonist therapy Nicotine dependance Cannabis use disorder PLAN: -Patient is admitted under involuntary status to MHU for stabilization of psychiatric symptoms and safety. Patient has not signed adult voluntary form or medication consent and is placed in patient's chart. A second certification was completed and along with petition will be filed for court. -Medications : Will start patient on Invega 3mg po qhs for psychosis, zoloft 50mg qhs for mood/anxiety -Ativan and Haldol PRN for agitation/aggression -Patient was counselled on substance abuse and desired to cut back on use -Patient was informed of the risks, benefits and side effects of the medication -Internal Medicine consult to perform medical evaluation and physical. -NRT -nicotine patch -SW on board for discharge planning. Encourage patient to participate in groups to work on coping skills. Will await deferral and court date.
[2023-11-14] MEDS: haloperidoL 5 MG TAB PO PRN (13:43)
[2023-11-14] MEDS ORDERED: SUBOXONE 8 MG SUBLINGUAL SCH (14:57)
[2023-11-14] MEDS: SUBOXONE SUBLINGUAL SCH ×2 (15:03→15:59)
[2023-11-14] MEDS: PALIPERIDONE 3 MG TAB.ER.24 PO SCH (22:34)
[2023-11-14] MEDS: SERTRALINE 50 MG TAB PO SCH (22:34)
--- NOTE | 2023-11-15 01:23 | P.CONS ---
History of Present Illness - Reason for Consult Consult date: 11/15/23 - History of Present Illness The patient is a 38-year-old female with a PMH of polysubstance abuse who had presented to the emergency room with complaints of depression and suicidal ideation and feeling frustrated. The patient was admitted to the mental health unit where she was seen and evaluated while accompanied by mental health community health consultant. She denied any physical complaints at the time of interview. Denied experiencing chest discomfort, shortness of breath, fever, chills, cough, nausea, vomiting, abdominal pain, diarrhea. She reports smoking half pack of cigarettes daily. Denied alcohol or illicit substance use. Denies urinary complaints. Review of systems: Pertinent positives and negatives as discussed in HPI, a complete review of systems was performed and all other systems are negative. Physical examination: General: non toxic, no distress, appears at stated age, normal weight Derm: no unusual rashes/lesions, no unusual ecchymoses, warm, dry Head: atraumatic, normocephalic, symmetric Eyes: EOMI, no lid lag, anicteric sclera ENT: Nose and ears atraumatic, no thrush, no pharyngeal erythema Neck: trachea midline, supple Mouth: no lip lesion, mucus membranes moist Cardiovascular: S1S2 reg, no murmur, no edema Lungs: CTA bilateral, no rhonchi, no rales , no accessory muscle use Abdominal: soft, nontender to palpation, no guarding Ext: no gross muscle atrophy, no contractures, Neuro: No gross focal neuro deficits noted Psych: Alert, oriented, appropriate affect Assessment: Marijuana abuse Depression and suicidal ideation Imaging: None performed Data Review: Urine toxicology positive for marijuana and amphetamines with UA contaminated Plan: Advised on the importance of cessation of marijuana use Defer management of depression and suicidal ideation to the primary psychiatry service Thank you for allowing us to participate in the care of this patient. We will follow peripherally. Do not hesitate to contact us with questions. Someone can be reached from the [facility] hospitalist group at all hours of the day at [phone]. Past Medical History Past Medical History: Seizure Disorder Additional Past Medical History / Comment(s): back pain, HPV History of Any Multi-Drug Resistant Organisms: None Reported Past Surgical History: Section, Tonsillectomy, Tubal Ligation Additional Past Surgical History / Comment(s): c section x 3 Past Psychological History: ADD/ADHD, Anxiety, Bipolar, Depression, PTSD, Schizophrenia Smoking Status: Current every day smoker Past Alcohol Use History: Occasional Past Drug Use History: Heroin, Marijuana - Past Family History Mother Family Medical History: Hypertension Medications and Allergies Home Medications Medication Instructions Recorded Confirmed Type No Known Home Medications 08/11/21 08/11/21 History Allergies Allergy/AdvReac Type Severity Reaction Status Date / Time latex Allergy Rash/Hives Verified 11/13/23 18:10 Penicillins Allergy Rash/Hives Verified 11/13/23 18:10 tramadol Allergy Unknown Verified 11/13/23 18:10 cyclobenzaprine AdvReac SEIZURES Verified 11/13/23 18:10 [From Flexeril] Physical Exam Vitals: Vital Signs Temp Pulse Resp BP Pulse Ox 11/14/23 20:00 97.7 F 56 L 18 139/61 97 11/14/23 05:53 97.7 F 56 L 18 139/61 97 Intake and Output 11/14/23 11/14/23 11/15/23 14:59 22:59 06:59 Other: Weight 58.967 kg Results Labs: Abnormal Lab Results - Last 24 Hours (Table) 11/14/23 11/14/23 Range/Units 04:04 04:04 Urine Appearance Turbid H (Clear) Urine Protein Trace H (Negative) Ur Leukocyte Esterase Large H (Negative) Urine WBC 92 H (0-5) /hpf Urine WBC Clumps Many H (None) /hpf Ur Squamous Epith Cells 28 H (0-4) /hpf Amorphous Sediment Occasional H (None) /hpf Urine Bacteria Many H (None) /hpf Urine Mucus Many H (None) /hpf Ur Amphetamines Screen Detected H (NotDetected) U Marijuana (THC) Screen Detected H (NotDetected)
[2023-11-15 08:23] LABS: Basophils % (A) 1 %; Eosinophils # (A) 0.2 k/uL (0-0.7); Eosinophils % (A) 3 %; HCT 41.3 % (34.0-46.0); HGB 13.2 gm/dL (11.4-16.0); Lymphocytes % (A) 41 %; MCH 28.8 pg (25.0-35.0); MCHC 31.9 g/dL (31.0-37.0); MCV 90.4 fL (80.0-100.0); Mean Platelet Volume 8.8; Monocytes # (A) 0.6 k/uL (0-1.0); Monocytes % (A) 8 %; Neutrophils # (A) 3.2 k/uL (1.3-7.7); Neutrophils % (A) 44 %; Platelet Count 259 k/uL (150-450); RBC 4.56 m/uL (3.80-5.40); RDW 14.6 % (11.5-15.5); WBC 7.3 k/uL (3.8-10.6)
[2023-11-15 09:09] LABS: ALT 11 U/L (4-34); AST 20 U/L (14-36); African American GFR (CKD) >90 (>60 ml/min/1.73 sqM); Albumin 3.8 g/dL (3.5-5.0); Alkaline Phosphatase 58 U/L (38-126); Anion Gap 6 mmol/L; Bilirubin, Delta 0.2 mg/dL (0.0-0.2); Bilirubin,Unconjugated 0.2 mg/dL (0.0-1.1); Blood Urea Nitrogen 8 mg/dL (7-17); Calcium 9.5 mg/dL (8.4-10.2); Carbon Dioxide 27 mmol/L (22-30); Chloride 107 mmol/L (98-107); Glucose 79 mg/dL (74-99); Non-African American GFR(CKD) >90 (>60 ml/min/1.73 sqM); Potassium 4.6 mmol/L (3.5-5.1); Sodium 140 mmol/L (137-145); Total Bilirubin 0.4 mg/dL (0.2-1.3); Total Protein 6.1 g/dL (6.3-8.2)
--- NOTE | 2023-11-15 10:14 | P.PN ---
Progress Note - Text Progress Note Date: 11/15/23 Interval History: Patient was seen in her room and was directable and agreeable to speak with wr iter at the bedside. Patient states that she is "pretty good" today. She was laying in bed, completely covered up to her neck, with her eyes closed for most of the interview. Patient is secluding to her room, only coming out for medication and meals. She stated that she thought her mom was coming to take her home, rewriter explained the court process to the patient, patient became irritable and demanding to speak to an civil rights attorney. At this time patient denies any suicidal or homical ideations, intent or plan. Patient denies any auditory, visual hallucinations and denies any paranoia or delusions. Patient denies any side effects from the medications and has been compliant with meds. MENTAL STATUS EXAM: General Appearance: Patient appears to be stated age is alert, directable, and attempts to cooperate. Patient appears to have fair hygiene and grooming. Behavior: Patient is laying in bed without any agitated behavior. Covered up, irritable Speech: Patient's speech is fluent and nonpressured. Mood/Affect: Patient reports their mood is anxious, affect is congruent and constricted. Suicidality/Homicidality: Patient denies having any homicidal ideation intent or plan. Denies any suicidal ideations intent or plan Perceptions: Patient denies any visual hallucinations and denies any auditory hallucinations Though content/process: There is no evidence of any delusional thought content a nd thought process is linear and goal-directed. [place]. rationalizing and minimizing need for treatment and hospitalization. Memory and concentration: AOX3, grossly intact for the purposes of this session. Judgment and insight: Poor IMPRESSIONS: psychosis, unspecified likely stimulant abuse opioid use disorder, currently on agonist therapy Nicotine dependance Cannabis use disorder PLAN: -Patient is admitted under involuntary status to MHU for stabilization of psychiatric symptoms and safety. Patient has not signed adult voluntary form or medication consent and is placed in patient's chart. -Medications : increase Invega 6mg po qhs for psychosis, zoloft 50mg qhs for mood/anxiety -Ativan and Haldol PRN for agitation/aggression -NRT -nicotine patch -SW on board for discharge planning. Encourage patient to participate in groups to work on coping skills. Will await deferral and court date.
[2023-11-15 15:46] LABS: Chol/HDL Ratio 2.97 Ratio; LDL Cholesterol,Calculated 90.7 mg/dL (0.0-131.0); VLDL Calculation 16.72 mg/dL (5.00-40.00)
[2023-11-15] MEDS: PALIPERIDONE 6 MG TAB.ER.24 PO SCH (21:46)
--- NOTE | 2023-11-16 11:26 | P.PN ---
Progress Note - Text Progress Note Date: 11/16/23 Interval History: Patient was seen in her room and was directable and agreeable to speak with wr iter at the bedside. Patient continues to mainly isolated in her room. She claims that she has not been leaving the room and "barely eating". She states that she is feeling very frustrated she had a very irritable tone today with travel writer. Argumentative mainly focusing on her discharge. She continues to display very poor insight poor judgment poor impulse control. She claims that she spoke with her mother this morning who will "pick me up later on today". She admitted to signing the deferral with the commonwealth attorney however states that she does not agree with being in the hospital. At this time patient denies any suicidal or homical ideations, intent or plan. Patient denies any auditory, visual hallucinations and denies any paranoia or delusions. Patient denies any side effects from the medications and has been compliant with meds. MENTAL STATUS EXAM: General Appearance: Patient appears to be stated age is alert, directable, and attempts to cooperate. Patient appears to have fair hygiene and grooming. Behavior: Patient is laying in bed without any agitated behavior. Covered up, irritable, argumentative. Speech: Patient's speech is fluent and nonpressured. Irritable tone. [place] g. Mood/Affect: Patient reports their mood is anxious and "upset", affect is congruent Suicidality/Homicidality: Patient denies having any homicidal ideation intent or plan. Denies any suicidal ideations intent or plan Perceptions: Patient denies any visual hallucinations and denies any auditory hallucinations Though content/process: There is no evidence of any delusional thought content. [place]. rationalizing and minimizing need for treatment and hospitalization. Focused on discharge Memory and concentration: AOX3, grossly intact for the purposes of this session. Judgment and insight: Poor/impulsive IMPRESSIONS: psychosis, unspecified likely stimulant abuse opioid use disorder, currently on agonist therapy Nicotine dependance Cannabis use disorder PLAN: -Patient is admitted under involuntary status to MHU for stabilization of psychiatric symptoms and safety. Patient has not signed adult voluntary form or medication consent and is placed in patient's chart. -Medications : Invega 6mg po qhs for psychosis, increased zoloft 100mg qhs for mood/anxiety, added lithium 450 mg qhs for mood stabilization. -Ativan and Haldol PRN for agitation/aggression -NRT -nicotine patch -SW on board for discharge planning. Encourage patient to participate in groups to work on coping skills. patient deferred with commonwealth attorney on 11/15. if patient is attempting to sign AMA or refusing medications then will file for demand for hearing.
[2023-11-16] MEDS: LITHIUM CARBONATE ER 450 MG TABLET.ER PO SCH (21:28)
[2023-11-16] MEDS: SERTRALINE 100 MG TAB PO SCH (21:28)
--- NOTE | 2023-11-17 10:40 | P.PN ---
Progress Note - Text Progress Note Date: 11/17/23 Interval history: Patient was seen laying in her bed today and was directable and agreeable to speak with feature writer. Patient continues to be fairly concrete, less irritable today with feature writer less argumentative. She was also less focused on discharge. She denied any overnight complaints. Continues to focus on discharge. States that she is taking her medications without any issues at this time, not reporting any side effects. Continues to have poor insight and judgment.. At this time patient denies any suicidal or homicidal ideations intent or plan. Denies any Auditory or visual hallucinations. Patient denies any side effects from the medications and has been compliant with meds. Mental status exam: General Appearance: Patient appears to be thin, stated age is alert, directable, and cooperative. Superficial. Behavior: No agitated behavior. Patient is calm and directable vague. Evasive. Speech: Patient's speech is fluent and nonpressured. [place] Mood/Affect: Mood is improving mildly, affect is congruent and constricted. Suicidality/Homicidality: Patient denies having any suicidal or homicidal ideation intent or plan. Perceptions: Patient denies any auditory or visual hallucinations. Though content/process: There is no evidence of any delusional thought content and thought process is linear and goal-directed. [place], poverty of content Memory and concentration: AOX3, grossly intact for the purposes of this session Judgment and insight: Poor, improving mildly Assessment/Plan: Continue with current diagnosis. Patient continues to meet criteria for inpatient psychiatric admission for symptom stabilization and safety. Patient will be maintained on current psychotropic medication regimen. Monitor for medication compliance and for any psychotropic medication side effects. Will continue to monitor ongoing response to treatment. Encouraged participation in milieu.
--- NOTE | 2023-11-18 11:35 | P.PN ---
Progress Note - Text Progress Note Date: 11/18/23 Interval history: Patient was seen laying in her bed today and was directable and agreeable to speak with marine underwriter. Patient appears to be less irritable today, more cooperative with marine underwriter. States that she attempted to call her mother earlier today however was not able to get through to her. She is less argumentative today with marine underwriter, claims that her anxiety and mood have been mildly improving with the medications. She claims that she is motivated to go home and do better for herself. Continues to mainly isolated in her room. States that she is sleeping fairly at nighttime, not reporting any side effects at this time. Continues to have poor/superficial insight and judgment.. At this time patient denies any suicidal or homicidal ideations intent or plan. Denies any Auditory or visual hallucinations. Patient denies any side effects from the medications and has been compliant with meds. Mental status exam: General Appearance: Patient appears to be thin, stated age is alert, directable, and cooperative. Superficial. Improving mildly Behavior: No agitated behavior. Patient is calm and directable vague. Less evasive Speech: Patient's speech is fluent and nonpressured. [place], improving mildly Mood/Affect: Mood is improving mildly, affect is congruent and constricted. Suicidality/Homicidality: Patient denies having any suicidal or homicidal ideation intent or plan. Perceptions: Patient denies any auditory or visual hallucinations. Though content/process: There is no evidence of any delusional thought content and thought process is linear and goal-directed. [place], poverty of content Memory and concentration: AOX3, grossly intact for the purposes of this session Judgment and insight: Poor, improving mildly Assessment/Plan: Continue with current diagnosis. Patient continues to meet criteria for inpatient psychiatric admission for symptom stabilization and safety. Patient will be maintained on current psychotropic medication regimen. Will check a lithium level on Sunday morning, social security assessor to reach out to patient's mother tomorrow to assess for patient's baseline and discharge planning, hopeful for Sunday versus Sunday. Monitor for medication compliance and for any psychotropic medication side effects. Will continue to monitor ongoing response to treatment. Encouraged participation in milieu.
--- NOTE | 2023-11-19 11:31 | P.PN ---
Progress Note - Text Progress Note Date: 11/19/23 Interval History: Patient was seen in group, and was directable and agreeable to speak with senior medical writer in the office. Patient states she feels an improvement in her mood today, with the medications. She states that she is feeling much better. Chip Tuner told patient we have to draw a lithium level tomorrow am. Patient states that she slept well last night. She is going to groups. Patient is eating meals, and she states her appetite is good. Patient became upset when she was told she could not be di scharged today. She is very focused on discharge. At this time patient denies any suicidal or homicidal ideations, intent or plan. Patient denies any auditory, visual hallucinations and denies any paranoia or delusions. Patient denies any side effects from the medications and has been compliant with meds. MENTAL STATUS EXAM: General Appearance: Patient appears to be stated age is alert, directable, and attempts to cooperate. Patient appears to have fair hygiene and grooming. Behavior: Patient is seated without any agitated behavior. Mildly irritable. Speech: Patient's speech is fluent and nonpressured. Mood/Affect: Patient reports their mood is improving, affect is congruent Suicidality/Homicidality: Patient denies having any homicidal ideation intent or plan. Denies any suicidal ideations intent or plan Perceptions: Patient denies any visual hallucinations and denies any auditory hallucinations Though content/process: There is no evidence of any delusional thought content. [place]. rationalizing and minimizing need for treatment and hospitalization. Focused on discharge Memory and concentration: AOX3, grossly intact for the purposes of this session. Judgment and insight: Poor/impulsive IMPRESSIONS: psychosis, unspecified likely stimulant abuse opioid use disorder, currently on agonist therapy Nicotine dependance Cannabis use disorder PLAN: -Patient is admitted under involuntary status to [facility] for stabilization of psychiatric symptoms and safety. Patient has not signed adult voluntary form or medication consent and is placed in patient's chart. -Medications : Invega 6mg po qhs for psychosis, zoloft 100mg qhs for mood/anxiety, lithobid 450 mg qhs for mood stabilization. -check lithium level tomorrow morning. -Ativan and Haldol PRN for agitation/aggression -NRT - nicotine patch -SW on board for discharge planning. Encourage patient to participate in groups to work on coping skills. patient deferred with estate attorney on 11/15. if patient is attempting to sign AMA or refusing medications then will file for demand for hearing. likely discharge sunday if patient improves psychiatrically.
[2023-11-19] MEDS: IBUPROFEN 600 MG TAB PO PRN (21:41)
--- NOTE | 2023-11-20 11:15 | P.PN ---
Progress Note - Text Progress Note Date: 11/20/23 Interval History: Patient was seen in her room, and was directable and agreeable to speak with denisa godoy at the bedside. Patient states she is pretty good today, and feels she is ready to go home. She is going to groups. Patient is eating meals, and she states her appetite is good. She is very focused on discharge. Drill Press Tender told patient that we need one more day with her on her medication prior to discharge, and we need to make sure she has a safe environment to go home to. Patient agreeable. At this time patient denies any suicidal or homicidal ideations, intent or plan. Patient denies any auditory, visual hallucinations and denies any paranoia or delusions. Patient denies any side effects from the medications and has been compliant with meds. MENTAL STATUS EXAM: General Appearance: Patient appears to be stated age is alert, directable, and attempts to cooperate. Patient appears to have fair hygiene and grooming. Behavior: Patient is seated without any agitated behavior.improving Speech: Patient's speech is fluent and nonpressured. Mood/Affect: Patient reports their mood is improving, affect is congruent Suicidality/Homicidality: Patient denies having any homicidal ideation intent or plan. Denies any suicidal ideations intent or plan Perceptions: Patient denies any visual hallucinations and denies any auditory hallucinations Though content/process: There is no evidence of any delusional thought content. [place]. rationalizing and minimizing need for treatment and hospitalization. Focused on discharge Memory and concentration: AOX3, grossly intact for the purposes of this session. Judgment and insight: Poor/impulsive, inproving IMPRESSIONS: psychosis, unspecified likely stimulant abuse opioid use disorder, currently on agonist therapy Nicotine dependance Cannabis use disorder PLAN: -Patient is admitted under involuntary status to [facility] for stabilization of psychiatric symptoms and safety. Patient has not signed adult voluntary form or medication consent and is placed in patient's chart. -Medications : Invega 6mg po qhs for psychosis, zoloft 100mg qhs for mood/anxiety, lithobid 450 mg qhs for mood stabilization. -check lithium level today -Ativan and Haldol PRN for agitation/aggression -NRT - nicotine patch -SW on board for discharge planning. Encourage patient to participate in groups to work on coping skills. patient deferred with ip attorney on 11/15. likely discharge tomorrow if patient continues to improve psychiatrically. nail mill worker to make contact with patient's mother and plan for d/c tomorrow.
[2023-11-21 07:31] VITALS: BP 107/57; PULSE 67; RESP 18; TEMP 97.6
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
== END 2023-11-21 13:42 | disposition home or self-care (01) | DRG 751 ==
LOC: EC 17:20 → 3MHU 11-14 05:15
PROVIDERS: ADMIT Psychiatry & Neurology Psychiatry; ATTEND Psychiatry & Neurology Psychiatry
DX: F29 Unspecified psychosis not due to a substance or known physiological condition (principal); R45.850 Homicidal ideations; R45.851 Suicidal ideations; F11.10 Opioid abuse, uncomplicated; F15.10 Other stimulant abuse, uncomplicated; F12.10 Cannabis abuse, uncomplicated; F31.9 Bipolar disorder, unspecified; F20.9 Schizophrenia, unspecified; Z11.52 Encounter for screening for COVID-19; F90.9 Attention-deficit hyperactivity disorder, unspecified type; F43.10 Post-traumatic stress disorder, unspecified; M54.9 Dorsalgia, unspecified; Z56.0 Unemployment, unspecified; Z59.10 Inadequate housing, unspecified; F17.210 Nicotine dependence, cigarettes, uncomplicated; Z71.6 Tobacco abuse counseling; Z86.19 Personal history of other infectious and parasitic diseases; Z71.51 Drug abuse counseling and surveillance of drug abuser; Z91.040 Latex allergy status; Z88.0 Allergy status to penicillin; Z88.5 Allergy status to narcotic agent; Z88.8 Allergy status to other drugs, medicaments and biological substances
CPT/HCPCS: 80053; 80061; 80178; 80306; 81001; 81025; 82075; 82248; 83036; 84443; 85025; 87636; 99285

== ENCOUNTER 2024-07-29 23:17 | Emergency (ER) | payer OTHER ==
--- NOTE | 2024-07-29 23:44 | ED ---
Abdominal Pain HPI - General Chief Complaint: Abdominal Pain Stated Complaint: Abdominal pain Time Seen by Provider: 07/29/24 23:21 Source: patient, RN notes reviewed Mode of arrival: EMS Limitations: no limitations - History of Present Illness Initial Comments: This is a 38-year-old female who presents to the emergency department for abdominal pain and feeling unwell. Patient states that she has had generalized abdominal pain on and off for the last few weeks. She had previously been on Klonopin, gabapentin, and Suboxone. However, she was incarcerated and her medication was discontinued. The patient is very tearful and states that from not having her medication she feels generally unwell. Denies any suicidal or homicidal ideations. She has been here for mental health evaluations several times in the past but states that she does not want to have one of these at this time. She just wants to be evaluated medically. Denies any nausea or vomiting. MD Complaint: abdominal pain - Related Data Previous Rx's Medication Instructions Recorded Ibuprofen [Motrin] 600 mg PO Q6HR PRN tab 11/21/23 [place] Carbonate ER [Lithobid] 450 mg PO HS 30 Days #30 tab 11/21/23 Paliperidone [Invega] 6 mg PO HS 30 Days #30 tab 11/21/23 Sertraline [Zoloft] 100 mg PO HS 30 Days #30 tab 11/21/23 Suboxone 8 mg SUBLINGUAL DAILY 11/21/23 Gabapentin [Neurontin] 300 mg PO TID #30 cap 07/30/24 Nitrofurantoin Monohyd/M-Cryst 100 mg PO Q12HR 5 Days #10 cap 07/30/24 [Macrobid] clonazePAM 0.5 mg PO TID 3 Days #9 tab 07/30/24 Allergies Allergy/AdvReac Type Severity Reaction Status Date / Time latex Allergy Rash/Hives Verified 07/29/24 23:26 Penicillins Allergy Rash/Hives Verified 07/29/24 23:26 tramadol Allergy Unknown Verified 07/29/24 23:26 cyclobenzaprine AdvReac SEIZURES Verified 07/29/24 23:26 [From Flexeril] Review of Systems ROS Statement: Those systems with pertinent positive or pertinent negative responses have been documented in the HPI. ROS Other: All systems not noted in ROS Statement are negative. Past Medical History Past Medical History: Fibromyalgia, Seizure Disorder Additional Past Medical History / Comment(s): back pain, HPV History of Any Multi-Drug Resistant Organisms: None Reported Past Surgical History: Section, Tonsillectomy, Tubal Ligation Additional Past Surgical History / Comment(s): c section x 3 Past Psychological History: ADD/ADHD, Anxiety, Bipolar, Depression, PTSD, Schizophrenia Smoking Status: Current every day smoker Past Alcohol Use History: Occasional Past Drug Use History: Heroin, Marijuana, Methamphetamine, Opiates - Past Family History Mother Family Medical History: Hypertension General Exam Limitations: no limitations General appearance: alert, anxious Head exam: Present: atraumatic, normocephalic, normal inspection Respiratory exam: Present: normal lung sounds bilaterally. Absent: respiratory distress, wheezes, rales, rhonchi, stridor Cardiovascular Exam: Present: regular rate, normal rhythm, normal heart sounds. Absent: systolic murmur, diastolic murmur, rubs, gallop, clicks GI/Abdominal exam: Present: soft, normal bowel sounds. Absent: distended, tenderness, guarding, rebound, rigid Neurological exam: Present: alert, oriented X3, CN II-XII intact Psychiatric exam: Present: normal affect, normal mood Skin exam: Present: warm, dry, intact, normal color. Absent: rash Course Vital Signs 07/29/24 07/30/24 23:18 02:57 Temperature 99.7 F H 98 F Pulse Rate 69 81 Respiratory 18 17 Rate Blood Pressure 119/91 118/78 O2 Sat by Pulse 99 100 Oximetry Medical Decision Making - Medical Decision Making This is a 38-year-old female who presents to the emergency department for abdominal pain. Was pt. sent in by a medical professional or institution? @ -No Did you speak to anyone other than the patient for history? @ -No Did you review nursing and triage notes? @ -Yes, and I agree, it is accurate with regards to the patient's symptoms. Were old charts reviewed? @ -No Differential Diagnosis? @ -Differential Abdominal Pain Women: Appendicitis, Cholecystitis, diverticulosis, ischemic bowel, pancreatitis, hepatitis, UTI, gastroenteritis, AAA, incarcerated hernia, bowel obstruction, constipation, inflammatory bowel, hepatitis, peptic ulcer disease, splenic infarction, perforated viscus, vulvitis, ovarian torsion, PID, kidney stone, placenta abruption, this is not meant to be an all-inclusive list EKG interpreted by me (3pts min.)? @ -Not obtained X-rays interpreted by me (1pt min.)? @ -KUB x-ray obtained. My interpretation identifies no dilation of the bowel loops. CT interpreted by me (1pt min.)? @ -Not obtained U/S interpreted by me (1pt. min.)? @ -Not obtained What testing was considered but not performed? (CT, X-rays, U/S, labs)? Why? @ -None What meds were considered but not given? Why? @ -None Did you discuss the management of the patient with other professionals? @ -No Did you reconcile home meds? @ -No Was smoking cessation discussed for >3mins.? @ -I discussed smoking cessation for greater than 3 minutes. The risk of smoking were discussed with the patient including but not limited to risks of cancer, stroke, coronary artery disease and COPD. Also discussed with patient were multiple methods of quitting smoking. Lastly we discussed the financial cost of smoking. Was critical care preformed (if so, how long)? @ -No Were there social determinants of health that impacted care today? How? (Homelessness, low income, unemployed, alcoholism, drug addiction, transportation, low edu. Level, literacy, decrease access to med. care, care home, rehab)? @ -No Was there de-escalation of care discussed even if they declined? (Discuss DNR or withdrawal of care, Hospice)? @ -No What co-morbidities impacted this encounter? (DM, HTN, Smoking, COPD, CAD, Cancer, CVA, Hep., AIDS, mental health diagnosis, sleep apnea, morbid obesity)? @ -Smoking, history of drug addiction, fibromyalgia Was patient admitted / discharged? @ -Discharged. Lab work unremarkable. Urinalysis is grossly contaminated, but still suggestive of infection with positive nitrites. Urine sent for culture. KUB x-ray obtained revealing no acute process. Symptoms were well-controlled in the emergency department and she was tolerating oral intake. She was given 1 g of ceftriaxone for suspected UTI. Prescription for Macrobid provided for the UTI. Advised that I can give her a 3-day refill on the Klonopin as it is a controlled substance. This was provided along with a refill on the gabapentin. Discussed that we cannot prescribe her with the Suboxone and she needs to follow-up with a Suboxone clinic such as [facility] for that. Patient expresses understanding and was discharged home in stable condition. Case discussed with ED attending Dr. Seth. Return precautions reviewed in depth, the patient is instructed to return to the emergency department with any new, worsening, or concerning symptoms. Patient verbalized understanding. Undiagnosed new problem with uncertain prognosis? @ -None Drug Therapy requiring intensive monitoring for toxicity (Heparin, Nitro, Insulin, Cardizem)? @ -None Were any procedures done? @ -None Diagnosis/symptom? @ -Abdominal pain, UTI Acute, or Chronic, or Acute on Chronic? @ -Acute Uncomplicated (without systemic symptoms) or Complicated (systemic symptoms)? @ -Uncomplicated Side effects of treatment? @ -None Exacerbation, Progression, or Severe Exacerbation] @ -Not applicable Poses a threat to life or bodily function? @ -No - Lab Data Result diagrams: 07/29/24 23:59 07/29/24 23:59 Lab Results 07/29/24 07/29/24 07/29/24 Range/Units 23:59 23:59 23:59 WBC 9.2 (3.8-10.6) k/uL RBC 5.29 (3.80-5.40) m/uL Hgb 16.0 (11.4-16.0) gm/dL Hct 47.8 H (34.0-46.0) % MCV 90.4 (80.0-100.0) fL MCH 30.3 (25.0-35.0) pg MCHC 33.5 (31.0-37.0) g/dL RDW 12.6 (11.5-15.5) % Plt Count 281 (150-450) k/uL MPV 7.4 Neutrophils % 55 % Lymphocytes % 34 % Monocytes % 6 % Eosinophils % 2 % Basophils % 1 % Neutrophils # 5.1 (1.3-7.7) k/uL Lymphocytes # 3.1 (1.0-4.8) k/uL Monocytes # 0.6 (0-1.0) k/uL Eosinophils # 0.1 (0-0.7) k/uL Basophils # 0.1 (0-0.2) k/uL Sodium 141 (137-145) mmol/L Potassium 3.6 (3.5-5.1) mmol/L Chloride 103 (98-107) mmol/L Carbon Dioxide 26 (22-30) mmol/L Anion Gap 12 mmol/L BUN 12 (7-17) mg/dL Creatinine 0.74 (0.52-1.04) mg/dL Est GFR (CKD-EPI)AfAm >90 (>60 ml/min/1.73 sqM) Est GFR (CKD-EPI)NonAf >90 (>60 ml/min/1.73 sqM) Glucose 80 (74-99) mg/dL Plasma Lactic Acid Michael (0.7-2.0) mmol/L Calcium 10.1 (8.4-10.2) mg/dL Total Bilirubin 1.0 (0.2-1.3) mg/dL AST 23 (14-36) U/L ALT 14 (4-34) U/L Alkaline Phosphatase 59 (38-126) U/L Total Protein 8.2 (6.3-8.2) g/dL Albumin 5.3 H (3.5-5.0) g/dL Amylase 56 (30-110) U/L Lipase 70 (23-300) U/L HCG, Qual Not Detected Urine Color Yellow Urine Appearance Cloudy H (Clear) Urine pH 6.5 (5.0-8.0) Ur Specific [place] 1.022 (1.001-1.035) Urine Protein Trace H (Negative) Urine Glucose (UA) Negative (Negative) Urine Ketones 1+ H (Negative) Urine Blood Negative (Negative) Urine Nitrite Positive H (Negative) Urine Bilirubin Negative (Negative) Urine Urobilinogen <2.0 (<2.0) mg/dL Ur Leukocyte Esterase Negative (Negative) Urine RBC 1 (0-5) /hpf Urine WBC 1 (0-5) /hpf Ur Squamous Epith Cells 22 H (0-4) /hpf Amorphous Sediment Occasional H (None) /hpf Urine Bacteria Rare H (None) /hpf Urine Mucus Moderate H (None) /hpf Urine Opiates Screen (NotDetected) Ur Oxycodone Screen (NotDetected) Urine Methadone Screen (NotDetected) Ur Barbiturates Screen (NotDetected) U Tricyclic Antidepress (NotDetected) Ur Phencyclidine Scrn (NotDetected) Ur Amphetamines Screen (NotDetected) U Methamphetamines Scrn (NotDetected) U Benzodiazepines Scrn (NotDetected) Urine Cocaine Screen (NotDetected) U Marijuana (THC) Screen (NotDetected) Serum Alcohol <10 mg/dL 07/29/24 07/29/24 Range/Units 23:59 23:59 WBC (3.8-10.6) k/uL RBC (3.80-5.40) m/uL Hgb (11.4-16.0) gm/dL Hct (34.0-46.0) % MCV (80.0-100.0) fL MCH (25.0-35.0) pg MCHC (31.0-37.0) g/dL RDW (11.5-15.5) % Plt Count (150-450) k/uL MPV Neutrophils % % Lymphocytes % % Monocytes % % Eosinophils % % Basophils % % Neutrophils # (1.3-7.7) k/uL Lymphocytes # (1.0-4.8) k/uL Monocytes # (0-1.0) k/uL Eosinophils # (0-0.7) k/uL Basophils # (0-0.2) k/uL Sodium (137-145) mmol/L Potassium (3.5-5.1) mmol/L Chloride (98-107) mmol/L Carbon Dioxide (22-30) mmol/L Anion Gap mmol/L BUN (7-17) mg/dL Creatinine (0.52-1.04) mg/dL Est GFR (CKD-EPI)AfAm (>60 ml/min/1.73 sqM) Est GFR (CKD-EPI)NonAf (>60 ml/min/1.73 sqM) Glucose (74-99) mg/dL Plasma Lactic Acid Michael 1.0 (0.7-2.0) mmol/L Calcium (8.4-10.2) mg/dL Total Bilirubin (0.2-1.3) mg/dL AST (14-36) U/L ALT (4-34) U/L Alkaline Phosphatase (38-126) U/L Total Protein (6.3-8.2) g/dL Albumin (3.5-5.0) g/dL Amylase (30-110) U/L Lipase (23-300) U/L HCG, Qual Urine Color Urine Appearance (Clear) Urine pH (5.0-8.0) Ur Specific Outlook (1.001-1.035) Urine Protein (Negative) Urine Glucose (UA) (Negative) Urine Ketones (Negative) Urine Blood (Negative) Urine Nitrite (Negative) Urine Bilirubin (Negative) Urine Urobilinogen (<2.0) mg/dL Ur Leukocyte Esterase (Negative) Urine RBC (0-5) /hpf Urine WBC (0-5) /hpf Ur Squamous Epith Cells (0-4) /hpf Amorphous Sediment (None) /hpf Urine Bacteria (None) /hpf Urine Mucus (None) /hpf Urine Opiates Screen Not Detected (NotDetected) Ur Oxycodone Screen Not Detected (NotDetected) Urine Methadone Screen Not Detected (NotDetected) Ur Barbiturates Screen Not Detected (NotDetected) U Tricyclic Antidepress Not Detected (NotDetected) Ur Phencyclidine Scrn Not Detected (NotDetected) Ur Amphetamines Screen Not Detected (NotDetected) U Methamphetamines Scrn Detected H (NotDetected) U Benzodiazepines Scrn Not Detected (NotDetected) Urine Cocaine Screen Not Detected (NotDetected) U Marijuana (THC) Screen Detected H (NotDetected) Serum Alcohol mg/dL - Radiology Data Radiology results: report reviewed, image reviewed Disposition Clinical Impression: Abdominal pain, UTI (urinary tract infection) Disposition: HOME SELF-CARE Instructions (If sedation given, give patient instructions): Urinary Tract Infection in Women (ED), Abdominal Pain (ED) Additional Instructions: Return to the emergency department with any new, worsening, or concerning symptoms. Take the antibiotic as prescribed for 5 days. Take the gabapentin 3 times daily as previously prescribed. Take the Klonopin up to 3 times daily as needed for the anxiety. Follow-up with [facility] regarding the Suboxone. Prescriptions: clonazePAM 0.5 mg PO TID 3 Days #9 tab Nitrofurantoin Monohyd/M-Cryst [Macrobid] 100 mg PO Q12HR 5 Days #10 cap Gabapentin [Neurontin] 300 mg PO TID #30 cap Is patient prescribed a controlled substance at d/c from ED?: Yes When asked, does pt state using other controlled substances?: No If prescribed controlled substance>3 days was MAPS reviewed?: Prescribed <3 Days Referrals: Nonstaff,Physician [Primary Care Provider] - 1-2 days Forms: Area [facility], [facility] Time of Disposition: 02:47
[2024-07-30] MEDS: SODIUM CHLORIDE 0.9% 1,000 ML IV STA
[2024-07-30] MEDS: KETOROLAC 15 MG/ML 1 ML VIAL IVP STA (00:01)
[2024-07-30] MEDS: clonazePAM 0.5 MG TAB PO STA (00:05)
[2024-07-30 00:24] LABS: Basophils # (A) 0.1 k/uL (0-0.2); Basophils % (A) 1 %; Eosinophils # (A) 0.1 k/uL (0-0.7); Eosinophils % (A) 2 %; HCT 47.8 % (34.0-46.0); Lymphocytes # (A) 3.1 k/uL (1.0-4.8); Lymphocytes % (A) 34 %; MCH 30.3 pg (25.0-35.0); MCHC 33.5 g/dL (31.0-37.0); MCV 90.4 fL (80.0-100.0); Mean Platelet Volume 7.4; Monocytes # (A) 0.6 k/uL (0-1.0); Monocytes % (A) 6 %; Neutrophils # (A) 5.1 k/uL (1.3-7.7); Neutrophils % (A) 55 %; Platelet Count 281 k/uL (150-450); RBC 5.29 m/uL (3.80-5.40); RDW 12.6 % (11.5-15.5); WBC 9.2 k/uL (3.8-10.6)
[2024-07-30 00:33] LABS: ALT 14 U/L (4-34); AST 23 U/L (14-36); African American GFR (CKD) >90 (>60 ml/min/1.73 sqM); Albumin 5.3 g/dL (3.5-5.0); Alcohol <10 mg/dL; Alkaline Phosphatase 59 U/L (38-126); Amylase 56 U/L (30-110); Anion Gap 12 mmol/L; Blood Urea Nitrogen 12 mg/dL (7-17); Calcium 10.1 mg/dL (8.4-10.2); Carbon Dioxide 26 mmol/L (22-30); Chloride 103 mmol/L (98-107); Glucose 80 mg/dL (74-99); Lipase 70 U/L (23-300); Non-African American GFR(CKD) >90 (>60 ml/min/1.73 sqM); Potassium 3.6 mmol/L (3.5-5.1); Sodium 141 mmol/L (137-145); Total Protein 8.2 g/dL (6.3-8.2)
[2024-07-30 00:45] LABS: Amorphous Sediment,Urine Occasional /hpf; Appearance,Urine Cloudy (Clear); Bacteria,Urine Rare /hpf; Bilirubin,Urine Negative (Negative); Blood,Urine Negative (Negative); Color,Urine Yellow; Glucose,Urine (UA) Negative (Negative); Ketones,Urine 1+ (Negative); Leukocyte Esterase,Urine Negative (Negative); Mucus,Urine Moderate /hpf; Nitrite,Urine Positive (Negative); PH, Urine 6.5 (5.0-8.0); Protein,Urine Trace (Negative); RBC,Urine 1 /hpf (0-5); Specific Gravity,Urine 1.022 (1.001-1.035); Squamous Epithelial Cell,Urine 22 /hpf (0-4); Urobilinogen,Urine <2.0 mg/dL (<2.0); WBC,Urine 1 /hpf (0-5)
[2024-07-30 00:47] LABS: Amphetamine Screen,Urine Not Detected (NotDetected); Barbiturate Screen,Urine Not Detected (NotDetected); Benzodiazepines Screen,Urine Not Detected (NotDetected); Cocaine Screen,Urine Not Detected (NotDetected); Methadone Screen, Urine Not Detected (NotDetected); Opiate Screen,Urine Not Detected (NotDetected); Oxycodone Screen, Urine Not Detected (NotDetected); Phencyclidine Screen,Urine Not Detected (NotDetected); Tricyclic Antidepressant,Urine Not Detected (NotDetected); Urn Cannabinoid Scrn Detected (NotDetected)
[2024-07-30 01:02] LABS: HCG,Qualitative Serum Not Detected
[2024-07-30] MEDS: cefTRIAXone IN SWFI 1,000 MG/10 ML SYRINGE IVP STA (01:18)
--- NOTE | 2024-07-30 02:43 | XR ---
EXAM: XR Abdomen, 1 View CLINICAL HISTORY: ITS.REASON XR Reason: abdominal pain TECHNIQUE: Frontal supine view of the abdomen/pelvis. COMPARISON: No relevant prior studies available. FINDINGS: Gastrointestinal tract: Unremarkable. No dilation. Bones/joints: Unremarkable. No acute fracture. IMPRESSION: Normal abdominal x-ray.
[2024-07-30 03:02] VITALS: BP 118/78; PULSE 81; RESP 17; TEMP 98
== END 2024-07-30 03:03 | disposition home or self-care (01) ==
LOC: EC 23:17
DX: N39.0 Urinary tract infection, site not specified (principal); R10.9 Unspecified abdominal pain; F17.200 Nicotine dependence, unspecified, uncomplicated; Z88.0 Allergy status to penicillin; Z88.5 Allergy status to narcotic agent; Z91.040 Latex allergy status; Z88.8 Allergy status to other drugs, medicaments and biological substances
CPT/HCPCS: 36415; 80053; 82150; 83605; 83690; 85025; 81001; 84703; 80306; 87086; 74018; 99284; 96374; 96375; 96361; 99406; G0480; J0696; J1885; 80320

== ENCOUNTER 2024-08-04 01:52 | Emergency (ER) | payer OTHER ==
[2024-08-04 01:59] VITALS: TEMP 98
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
[2024-08-04 02:59] LABS: Appearance,Urine Clear (Clear); Bacteria,Urine Rare /hpf; Bilirubin,Urine Negative (Negative); Blood,Urine Large (Negative); Color,Urine Yellow; Glucose,Urine (UA) Negative (Negative); Ketones,Urine Negative (Negative); Leukocyte Esterase,Urine Negative (Negative); Mucus,Urine Many /hpf; Nitrite,Urine Negative (Negative); Protein,Urine Trace (Negative); RBC,Urine 1 /hpf (0-5); Specific Gravity,Urine 1.028 (1.001-1.035); Squamous Epithelial Cell,Urine 2 /hpf (0-4); Urobilinogen,Urine <2.0 mg/dL (<2.0); WBC,Urine 4 /hpf (0-5)
[2024-08-04 03:12] LABS: Amphetamine Screen,Urine Detected (NotDetected); Barbiturate Screen,Urine Not Detected (NotDetected); Benzodiazepines Screen,Urine Not Detected (NotDetected); Cocaine Screen,Urine Not Detected (NotDetected); Methadone Screen, Urine Not Detected (NotDetected); Opiate Screen,Urine Not Detected (NotDetected); Oxycodone Screen, Urine Not Detected (NotDetected); Phencyclidine Screen,Urine Not Detected (NotDetected); Tricyclic Antidepressant,Urine Not Detected (NotDetected); Urn Cannabinoid Scrn Detected (NotDetected)
[2024-08-04 03:28] LABS: Influenza A Not Detected (Not Detectd); Influenza B Not Detected (Not Detectd); RSV Not Detected (Not Detectd)
[2024-08-04 06:58] VITALS: BP 138/68; PULSE 86; RESP 18
== END 2024-08-04 07:08 | disposition home or self-care (01) ==
LOC: EC 01:52
DX: F31.9 Bipolar disorder, unspecified (principal); F17.200 Nicotine dependence, unspecified, uncomplicated; Z88.0 Allergy status to penicillin; Z88.5 Allergy status to narcotic agent; Z91.040 Latex allergy status; Z88.8 Allergy status to other drugs, medicaments and biological substances
CPT/HCPCS: 80306; 81001; 82075; 87636; 99285

== ENCOUNTER 2024-08-15 14:38 | Emergency (ER) | payer OTHER ==
[2024-08-15 15:02] VITALS: BP 106/71; PULSE 70; RESP 16; TEMP 97.6
--- NOTE | 2024-08-15 16:16 | ED ---
General Adult HPI - General Chief complaint: Recheck/Abnormal Lab/Rx Stated complaint: Nausea Time Seen by Provider: 08/15/24 15:41 Source: patient, RN notes reviewed Mode of arrival: ambulatory Limitations: no limitations - History of Present Illness Initial comments: This is a 38-year-old female no stomach medical history presenting to the emergency department for complaint of feeling well. She states that over the past few months she has been experiencing epigastric abdominal pain. She denies associated nausea, vomiting, diarrhea, constipation, hematochezia, melena. She denies dysuria, hematuria dysuria frequency urgency. Denies previous surgical abdominal history. - Related Data Previous Rx's Medication Instructions Recorded Ibuprofen [Motrin] 600 mg PO Q6HR PRN tab 11/21/23 [place] Carbonate ER [Lithobid] 450 mg PO HS 30 Days #30 tab 11/21/23 Paliperidone [Invega] 6 mg PO HS 30 Days #30 tab 11/21/23 Sertraline [Zoloft] 100 mg PO HS 30 Days #30 tab 11/21/23 Suboxone 8 mg SUBLINGUAL DAILY 11/21/23 Gabapentin [Neurontin] 300 mg PO TID #30 cap 07/30/24 Nitrofurantoin Monohyd/M-Cryst 100 mg PO Q12HR 5 Days #10 cap 07/30/24 [Macrobid] clonazePAM 0.5 mg PO TID 3 Days #9 tab 07/30/24 Allergies Allergy/AdvReac Type Severity Reaction Status Date / Time latex Allergy Rash/Hives Verified 08/15/24 15:02 Penicillins Allergy Rash/Hives Verified 08/15/24 15:02 tramadol Allergy Unknown Verified 08/15/24 15:02 cyclobenzaprine AdvReac SEIZURES Verified 08/15/24 15:02 [From Flexeril] Review of Systems ROS Statement: Those systems with pertinent positive or pertinent negative responses have been documented in the HPI. ROS Other: All systems not noted in ROS Statement are negative. Past Medical History Past Medical History: Fibromyalgia, Seizure Disorder Additional Past Medical History / Comment(s): back pain, HPV History of Any Multi-Drug Resistant Organisms: None Reported Past Surgical History: Section, Tonsillectomy, Tubal Ligation Additional Past Surgical History / Comment(s): c section x 3 Past Psychological History: ADD/ADHD, Anxiety, Bipolar, Depression, PTSD, Schizophrenia Smoking Status: Current every day smoker Past Alcohol Use History: Occasional Past Drug Use History: Heroin, Marijuana, Methamphetamine, Opiates - Past Family History Mother Family Medical History: Hypertension General Exam Limitations: no limitations General appearance: alert, in no apparent distress ENT exam: Present: normal exam, mucous membranes moist Neck exam: Present: normal inspection. Absent: tenderness, meningismus, lym phadenopathy Respiratory exam: Present: normal lung sounds bilaterally. Absent: respiratory distress, wheezes, rales, rhonchi, stridor Cardiovascular Exam: Present: regular rate, normal rhythm, normal heart sounds. Absent: systolic murmur, diastolic murmur, rubs, gallop, clicks GI/Abdominal exam: Present: soft, tenderness (epigastric), normal bowel sounds. Absent: distended, guarding, rebound, rigid Extremities exam: Present: normal inspection, full ROM, normal capillary refill. Absent: tenderness, pedal edema, joint swelling, calf tenderness Back exam: Present: normal inspection Course Vital Signs 08/15/24 14:56 Temperature 97.6 F Pulse Rate 70 Respiratory 16 Rate Blood Pressure 106/71 O2 Sat by Pulse 98 Oximetry Medical Decision Making - Medical Decision Making Was pt. sent in by a medical professional or institution (, PA, REGIONAL WILDLIFE AGENT, urgent care, hospital, or detention...) When possible be specific @ -No Did you speak to anyone other than the patient for history (EMS, parent, family, police, friend...)? What history was obtained from this source @ -No Did you review nursing and triage notes (agree or disagree)? Why? @ -I reviewed and agree with nursing and triage notes Were old charts reviewed (outside hosp., previous admission, EMS record, old EKG, old radiological studies, urgent care reports/EKG's, detention records)? Report findings @ -No old charts were reviewed Differential Diagnosis (chest pain, altered mental status, abdominal pain women, abdominal pain men, vaginal bleeding, weakness, fever, dyspnea, syncope, headache, dizziness, GI bleed, back pain, seizure, CVA, palpatations, mental health, musculoskeletal)? @ -Differential Abdominal Pain Women: Appendicitis, Cholecystitis, diverticulosis, ischemic bowel, pancreatitis, hepatitis, UTI, gastroenteritis, AAA, incarcerated hernia, bowel obstruction, constipation, inflammatory bowel, hepatitis, peptic ulcer disease, splenic infarction, perforated viscus, vulvitis, ovarian torsion, PID, kidney stone, placenta abruption, this is not meant to be an all-inclusive list EKG interpreted by me (3pts min.). @ -none X-rays interpreted by me (1pt min.). @ -None done CT interpreted by me (1pt min.). @ -None done U/S interpreted by me (1pt. min.). @ -Ultrasound of the gallbladder reveals a dilated common bile duct with no cholelithiasis or evidence of acute cholecystitis What testing was considered but not performed or refused? (CT, X-rays, U/S, labs)? Why? @ -None What meds were considered but not given or refused? Why? @ -None Did you discuss the management of the patient with other professionals (professionals i.e. , PA, REGIONAL WILDLIFE AGENT, lab, RT, psych nurse, social psychologist, stove tender, teacher, command and control officer, case finisher)? Give summary @ -No Was smoking cessation discussed for >3mins.? @ -No Was critical care preformed (if so, how long)? @ -No Were there social determinants of health that impacted care today? How? (Homelessness, low income, unemployed, alcoholism, drug addiction, transportation, low edu. Level, literacy, decrease access to med. care, shelter, rehab)? @ -No Was there de-escalation of care discussed even if they declined (Discuss DNR or withdrawal of care, Hospice)? DNR status @ -No What co-morbidities impacted this encounter? (DM, HTN, Smoking, COPD, CAD, Cancer, CVA, ARF, Chemo, Hep., AIDS, mental health diagnosis, sleep apnea, morbid obesity)? @ -None Was patient admitted / discharged? Hospital course, mention meds given and route, prescriptions, significant lab abnormalities, going to OR and other pertinent info. @ -Discharge. 38-year-old female presenting with intermittent abdominal pain. Vitals are stable. Labs are unremarkable. Urinalysis remarkable for positive nitrates and occasional mucus and bacteria. hCG is negative. Patient is not experiencing symptoms urinary tract infection however urine is sent for culture but antibiotics are withheld at this time. Ultrasound reveals a minimal dilation of the common bile duct and no evidence of cholelithiasis or acute cholecystitis. Patient is provided with outpatient referral to general surgeon and GI specialist for further evaluation of biliary colic. Discussed with Dr. Vuong Undiagnosed new problem with uncertain prognosis? @ -No Drug Therapy requiring intensive monitoring for toxicity (Heparin, Nitro, Insulin, Cardizem)? @ -No Were any procedures done? @ -No Diagnosis/symptom? @ -Biliary colic, abdominal pain Acute, or Chronic, or Acute on Chronic? @ -Acute Uncomplicated (without systemic symptoms) or Complicated (systemic symptoms)? @ -Uncomplicated Side effects of treatment? @ -No Exacerbation, Progression, or Severe Exacerbation? @ -No Poses a threat to life or bodily function? How? (Chest pain, [place], [place], pneumonia, PE, COPD, DKA, ARF, appy, cholecystitis, CVA, Diverticulitis, Homicidal, Suicidal, threat to staff... and all critical care pts) @ -No - Lab Data Result diagrams: 08/15/24 16:25 08/15/24 16:25 Lab Results 08/15/24 08/15/24 08/15/24 Range/Units 16:25 16:25 17:01 WBC 7.8 (3.8-10.6) k/uL RBC 4.40 (3.80-5.40) m/uL Hgb 13.6 (11.4-16.0) gm/dL Hct 39.6 (34.0-46.0) % MCV 89.9 (80.0-100.0) fL MCH 30.8 (25.0-35.0) pg MCHC 34.3 (31.0-37.0) g/dL RDW 12.5 (11.5-15.5) % Plt Count 245 (150-450) k/uL MPV 7.3 Neutrophils % 63 % Lymphocytes % 26 % Monocytes % 7 % Eosinophils % 2 % Basophils % 0 % Neutrophils # 4.9 (1.3-7.7) k/uL Lymphocytes # 2.0 (1.0-4.8) k/uL Monocytes # 0.5 (0-1.0) k/uL Eosinophils # 0.1 (0-0.7) k/uL Basophils # 0.0 (0-0.2) k/uL Sodium 136 L (137-145) mmol/L Potassium 3.9 (3.5-5.1) mmol/L Chloride 104 (98-107) mmol/L Carbon Dioxide 27 (22-30) mmol/L Anion Gap 5 mmol/L BUN 13 (7-17) mg/dL Creatinine 0.68 (0.52-1.04) mg/dL Est GFR (CKD-EPI)AfAm >90 (>60 ml/min/1.73 sqM) Est GFR (CKD-EPI)NonAf >90 (>60 ml/min/1.73 sqM) Glucose 92 (74-99) mg/dL Calcium 9.4 (8.4-10.2) mg/dL Total Bilirubin 0.7 (0.2-1.3) mg/dL AST 17 (14-36) U/L ALT 10 (4-34) U/L Alkaline Phosphatase 57 (38-126) U/L Total Protein 6.3 (6.3-8.2) g/dL Albumin 4.2 (3.5-5.0) g/dL Amylase 35 (30-110) U/L Lipase 42 (23-300) U/L Urine Color Yellow Urine Appearance Cloudy H (Clear) Urine pH 6.0 (5.0-8.0) Ur Specific Denio 1.017 (1.001-1.035) Urine Protein Trace H (Negative) Urine Glucose (UA) Negative (Negative) Urine Ketones Negative (Negative) Urine Blood Negative (Negative) Urine Nitrite Positive H (Negative) Urine Bilirubin Negative (Negative) Urine Urobilinogen <2.0 (<2.0) mg/dL Ur Leukocyte Esterase Moderate H (Negative) Urine RBC 1 (0-5) /hpf Urine WBC 11 H (0-5) /hpf Ur Squamous Epith Cells 18 H (0-4) /hpf Urine Bacteria Moderate H (None) /hpf Urine Mucus Occasional H (None) /hpf Urine HCG, Qual (Not Detectd) 08/15/24 Range/Units 17:01 WBC (3.8-10.6) k/uL RBC (3.80-5.40) m/uL Hgb (11.4-16.0) gm/dL Hct (34.0-46.0) % MCV (80.0-100.0) fL MCH (25.0-35.0) pg MCHC (31.0-37.0) g/dL RDW (11.5-15.5) % Plt Count (150-450) k/uL MPV Neutrophils % % Lymphocytes % % Monocytes % % Eosinophils % % Basophils % % Neutrophils # (1.3-7.7) k/uL Lymphocytes # (1.0-4.8) k/uL Monocytes # (0-1.0) k/uL Eosinophils # (0-0.7) k/uL Basophils # (0-0.2) k/uL Sodium (137-145) mmol/L Potassium (3.5-5.1) mmol/L Chloride (98-107) mmol/L Carbon Dioxide (22-30) mmol/L Anion Gap mmol/L BUN (7-17) mg/dL Creatinine (0.52-1.04) mg/dL Est GFR (CKD-EPI)AfAm (>60 ml/min/1.73 sqM) Est GFR (CKD-EPI)NonAf (>60 ml/min/1.73 sqM) Glucose (74-99) mg/dL Calcium (8.4-10.2) mg/dL Total Bilirubin (0.2-1.3) mg/dL AST (14-36) U/L ALT (4-34) U/L Alkaline Phosphatase (38-126) U/L Total Protein (6.3-8.2) g/dL Albumin (3.5-5.0) g/dL Amylase (30-110) U/L Lipase (23-300) U/L Urine Color Urine Appearance (Clear) Urine pH (5.0-8.0) Ur Specific Denio (1.001-1.035) Urine Protein (Negative) Urine Glucose (UA) (Negative) Urine Ketones (Negative) Urine Blood (Negative) Urine Nitrite (Negative) Urine Bilirubin (Negative) Urine Urobilinogen (<2.0) mg/dL Ur Leukocyte Esterase (Negative) Urine RBC (0-5) /hpf Urine WBC (0-5) /hpf Ur Squamous Epith Cells (0-4) /hpf Urine Bacteria (None) /hpf Urine Mucus (None) /hpf Urine HCG, Qual Not Detected (Not Detectd) Disposition Clinical Impression: Abdominal pain Disposition: HOME SELF-CARE Condition: Good Instructions (If sedation given, give patient instructions): Abdominal Pain (ED) Additional Instructions: Please return to the Emergency Department if symptoms worsen or any other concerns. Follow-up with provided washing machine assembler and general surgeon. Is patient prescribed a controlled substance at d/c from ED?: No Referrals: None,Stated [Primary Care Provider] - 1-2 days Isabela Aden MD [STAFF PHYSICIAN] - 1-2 days Evie Gutierrez MD [STAFF PHYSICIAN] - 1-2 days Time of Disposition: 17:51
[2024-08-15 16:41] LABS: Basophils % (A) 0 %; Eosinophils # (A) 0.1 k/uL (0-0.7); Eosinophils % (A) 2 %; HCT 39.6 % (34.0-46.0); HGB 13.6 gm/dL (11.4-16.0); Lymphocytes % (A) 26 %; MCH 30.8 pg (25.0-35.0); MCHC 34.3 g/dL (31.0-37.0); MCV 89.9 fL (80.0-100.0); Mean Platelet Volume 7.3; Monocytes # (A) 0.5 k/uL (0-1.0); Monocytes % (A) 7 %; Neutrophils # (A) 4.9 k/uL (1.3-7.7); Neutrophils % (A) 63 %; Platelet Count 245 k/uL (150-450); RDW 12.5 % (11.5-15.5); WBC 7.8 k/uL (3.8-10.6)
[2024-08-15 16:52] LABS: ALT 10 U/L (4-34); AST 17 U/L (14-36); African American GFR (CKD) >90 (>60 ml/min/1.73 sqM); Albumin 4.2 g/dL (3.5-5.0); Alkaline Phosphatase 57 U/L (38-126); Amylase 35 U/L (30-110); Anion Gap 5 mmol/L; Blood Urea Nitrogen 13 mg/dL (7-17); Calcium 9.4 mg/dL (8.4-10.2); Carbon Dioxide 27 mmol/L (22-30); Chloride 104 mmol/L (98-107); Glucose 92 mg/dL (74-99); Lipase 42 U/L (23-300); Non-African American GFR(CKD) >90 (>60 ml/min/1.73 sqM); Potassium 3.9 mmol/L (3.5-5.1); Sodium 136 mmol/L (137-145); Total Bilirubin 0.7 mg/dL (0.2-1.3); Total Protein 6.3 g/dL (6.3-8.2)
[2024-08-15] MEDS: KETOROLAC 15 MG/ML 1 ML VIAL IVP STA (17:04)
--- NOTE | 2024-08-15 17:15 | US ---
EXAMINATION TYPE: US gallbladder DATE OF EXAM: 08/15/2024 COMPARISON: NONE CLINICAL INDICATION: Female, 38 years old with history of epigastric abdominal pain; epigastric pain, possible Hx of Hep C? TECHNIQUE: Grayscale and color Doppler imaging of the right upper quadrant was performed. FINDINGS: EXAM MEASUREMENTS: Liver Length: 17.3 cm Gallbladder Wall: 0.2 cm CBD: 1.0 cm Right Kidney: 10.4x3.7x4.9 cm CASSANDRA DEVELOPER NOTES: Pancreas: Tail obscured by overlying bowel gas Liver: enlarged, echogenic, heterogenous, several tiny cystic areas throughout, largest cyst measure s: 1.5x1.0x1.5cm Gallbladder: wnl Evidence for sonographic Collins's sign: No CBD: dilated, shotgun sign Right Kidney: wnl exam limited by bowel Few simple appearing hepatic cysts identified. The liver is enlarged and heterogenous with echogenic appearance. No overt surface nodularity. The visualized portions of the pancreas are within normal li mits. The tail is obscured by overlying bowel gas. The common bile the duct is dilated. No gallstones or wall thickening and surrounding fluid is identified. Negative sonographic Collins sign. Right kidn ey demonstrates no hydronephrosis, nephrolithiasis, or solid mass. IMPRESSION: 1. Dilated common bile duct. Correlate with biliary labs. Consider further evaluation with MRCP/ERCP as clinically indicated. 2. No cholelithiasis identified. No evidence for acute cholecystitis. 3. Enlarged heterogenous liver consistent with nonspecific hepatocellular disease. No overt cirrhotic appearance. A few simple appearing cysts. No suspicious lesion identified. [facility], , 08/15/2024 5:13 PM
[2024-08-15 17:34] LABS: Appearance,Urine Cloudy (Clear); Bacteria,Urine Moderate /hpf; Bilirubin,Urine Negative (Negative); Blood,Urine Negative (Negative); Color,Urine Yellow; Glucose,Urine (UA) Negative (Negative); Ketones,Urine Negative (Negative); Leukocyte Esterase,Urine Moderate (Negative); Mucus,Urine Occasional /hpf; Nitrite,Urine Positive (Negative); Protein,Urine Trace (Negative); RBC,Urine 1 /hpf (0-5); Specific Gravity,Urine 1.017 (1.001-1.035); Squamous Epithelial Cell,Urine 18 /hpf (0-4); Urobilinogen,Urine <2.0 mg/dL (<2.0); WBC,Urine 11 /hpf (0-5)
[2024-08-15] MEDS: MORPHINE SULFATE 2 MG/ML SYRINGE IVP ONE (18:00)
== END 2024-08-15 18:14 | disposition home or self-care (01) ==
LOC: EC 14:38
DX: K83.8 Other specified diseases of biliary tract (principal); F17.200 Nicotine dependence, unspecified, uncomplicated; Z88.0 Allergy status to penicillin; Z88.5 Allergy status to narcotic agent; Z91.040 Latex allergy status; Z88.8 Allergy status to other drugs, medicaments and biological substances
CPT/HCPCS: 36415; 80053; 82150; 83690; 85025; 81001; 81025; 76705; 99284; 96374; J1885; 87086